=== PATIENT | male | born 1945 | race Caucasian/White ===

== ENCOUNTER 2019-07-05 02:54 | Inpatient (IN) | payer OTHER ==
[2019-07-05] MEDS ORDERED: ONDANSETRON 4 MG/2 ML VIAL ONE ×2 (03:30→10:29)
[2019-07-05] MEDS ORDERED: MORPHINE 4 MG/ML SYR ONE ×2 (03:30→04:53)
[2019-07-05 03:49] LABS: Basophils % 0.8 % (0-1.3); Hematocrit 32.9 % (39.6-49.0); Lymphocytes % 10.6 % (15.3-44.8); RBC Red Blood Cell Count 4.89 M/uL (4.33-5.43)
[2019-07-05 04:05] LABS: Albumin 3.5 g/dL (3.4-5.0); Bilirubin Direct 0.1 mg/dL (0-0.2); Bilirubin Total 0.6 mg/dL (0.2-1.0); Potassium 3.8 mmol/L (3.5-5.1); Protein, Total 6.3 g/dL (6.4-8.2)
[2019-07-05 04:21] LABS: Blood Morphology Comment NOTED (NOT SEEN); Hypochromasia 1+; Platelet Estimate ADEQ; Urine White Blood Cell Casts OK
[2019-07-05 05:13] LABS: Urine Bacteria <20 /HPF (NONE SEEN); Urine Culture Reflex Order NOT NEEDED; Urine Mucus LIGHT /HPF (NONE SEEN); Urine RBC NONE SEEN /HPF (NONE SEEN)
--- NOTE | 2019-07-05 06:34 | EDPHYS ---
Physician Documentation [facility] Name: Tk Leyva Age: 74 yrs Sex: Male : 1945 Arrival Date: 07/05/2019 Time: 03:00 Bed 5 Private MD: ED Physician Michael Calderon HPI: 07/05 03:27 This 74 yrs old Male presents to ER via Ambulatory with complaints of tw4 Abdominal Pain. 03:27 The patient presents with abdominal pain in the epigastric area. Onset: The tw4 symptoms/episode began/occurred today. The symptoms do not radiate. Associated signs and symptoms: none. The symptoms are described as sharp. Modifying factors: The symptoms are alleviated by nothing, the symptoms are aggravated by nothing. Severity of pain: At its worst the pain was moderate in the emergency department the pain has improved. The patient has not experienced similar symptoms in the past. Historical: - Allergies: 03:13 NKDA; ea - PMHx: 03:13 Parkinsons; Hypothyroidism; ea - PSHx: 03:13 Ear Surgery; Tonsillectomy; ea - Immunization history:: Adult Immunizations up to date. - Social history:: Smoking status: Patient/guardian denies using tobacco. - Ebola Screening: : No symptoms or risks identified at this time. ROS: 03:27 Constitutional: Negative for fever, chills, and weight loss, Eyes: Negative for injury, tw4 pain, redness, and discharge, Cardiovascular: Negative for chest pain, palpitations, and edema, Respiratory: Negative for shortness of breath, cough, wheezing, and pleuritic chest pain, Back: Negative for injury and pain, MS/Extremity: Negative for injury and deformity, Skin: Negative for injury, rash, and discoloration, Neuro: Negative for headache, weakness, numbness, tingling, and seizure. 03:27 Abdomen/GI: Positive for abdominal pain, abdominal cramps, Negative for nausea and vomiting, nausea, vomiting, and diarrhea, nausea, vomiting, diarrhea, constipation. Exam: 03:43 Constitutional: This is a well developed, well nourished patient who is awake, alert, tw4 and in no acute distress. Head/Face: Normocephalic, atraumatic. Eyes: Pupils equal round and reactive to light, extra-ocular motions intact. Lids and lashes normal. Conjunctiva and sclera are non-icteric and not injected. Cornea within normal limits. Periorbital areas with no swelling, redness, or edema. Neck: Trachea midline, no thyromegaly or masses palpated, and no cervical lymphadenopathy. Supple, full range of motion without nuchal rigidity, or vertebral point tenderness. No Meningismus. Chest/axilla: Normal chest wall appearance and motion. Nontender with no deformity. No lesions are appreciated. Cardiovascular: Regular rate and rhythm with a normal S1 and S2. No gallops, murmurs, or rubs. Normal PMI, no JVD. No pulse deficits. Respiratory: Lungs have equal breath sounds bilaterally, clear to auscultation and percussion. No rales, rhonchi or wheezes noted. No increased work of breathing, no retractions or nasal flaring. Skin: Warm, dry with normal turgor. Normal color with no rashes, no lesions, and no evidence of cellulitis. MS/ Extremity: Pulses equal, no cyanosis. Neurovascular intact. Full, normal range of motion. Neuro: Awake and alert, GCS 15, oriented to person, place, time, and situation. Cranial nerves II-XII grossly intact. Motor strength 5/5 in all extremities. Sensory grossly intact. Cerebellar exam normal. Normal gait. 03:43 Abdomen/GI: Inspection: abdomen appears normal, Bowel sounds: diminished, Palpation: moderate abdominal tenderness, in the left upper quadrant. Vital Signs: 03:11 BP 164 / 89; Pulse 70; Resp 18; Temp 97.8; Pulse Ox 98% on R/A; Weight 75.75 kg; Height ea 5 ft. 10 in. (177.80 cm); Pain 6/10; 03:45 BP 132 / 79; Pulse 63; Resp 18; Pulse Ox 95% on R/A; ea 04:00 BP 130 / 79; Pulse 61; Resp 18; Pulse Ox 95% on R/A; ea 05:56 BP 130 / 73; Pulse 68; Resp 18; Pulse Ox 97% on R/A; ea 06:50 BP 126 / 72; Pulse 62; Resp 17; Temp 98.2; Pulse Ox 100% ; rr5 03:11 Body Mass Index 23.96 (75.75 kg, 177.80 cm) ea MDM: 03:19 Patient medically screened. tw4 06:37 Differential diagnosis: bowel obstruction, cholecystitis, Cholelithiasis, tw4 diverticulitis, Hepatitis, non-specific abd pain, pancreatitis, Peptic Ulcer Disease, Perf. Duodenal Ulcer, Pyelonephritis, Ureterolithiasis. Data reviewed: vital signs, nurses notes. Data interpreted: Pulse oximetry: Interpretation: normal. Counseling: I had a detailed discussion with the patient and/or guardian regarding: the historical points, exam findings, and any diagnostic results supporting the discharge/admit diagnosis. Physician consultation: Rosita Ferrera MD regarding admission, to the medical/surgical unit. and will see patient in inpatient room. 07/05 03:20 Order name: Basic Metabolic Panel; Complete Time: 05:48 tw4 07/05 05:48 Interpretation: Normal except: GLUC 133; BUN 21; GFR 74. tw4 07/05 03:20 Order name: CBC with Diff; Complete Time: 05:48 tw4 07/05 05:48 Interpretation: Normal except: MCV 67.3; MCH 21.6; HCT 32.9; HGB 10.5; RDW 16.2; RADHA% tw4 82.0; LYM% 10.6. 07/05 03:20 Order name: Creatinine for Radiology; Complete Time: 05:48 tw4 07/05 05:48 Interpretation: Within normal limits: CRE 1.00. tw4 07/05 03:20 Order name: Hepatic Function; Complete Time: 05:48 tw4 07/05 05:48 Interpretation: Normal except: AST 14; TP 6.3. tw4 07/05 03:20 Order name: Lipase; Complete Time: 05:48 tw4 07/05 05:48 Interpretation: LIP 82. tw4 07/05 03:20 Order name: Urine Microscopic Only tw4 07/05 04:21 Order name: CBC Smear Scan EDMS 07/05 06:45 Order name: CBC with Automated Diff EDMS 07/05 06:45 Order name: CBC with Automated Diff EDMS 07/05 06:45 Order name: Comprehensive Metabolic Panel EDMS 07/05 06:45 Order name: Comprehensive Metabolic Panel EDMS 07/05 06:45 Order name: Magnesium EDMS 07/05 06:45 Order name: Magnesium EDMS 07/05 06:45 Order name: Phosphorus EDMS 07/05 03:20 Order name: IV Saline Lock; Complete Time: 03:46 tw4 07/05 03:20 Order name: Labs collected and sent; Complete Time: 03:46 tw4 07/05 03:20 Order name: Urine Dipstick-Ancillary (obtain specimen); Complete Time: 05:00 tw4 07/05 03:20 Order name: CT Abd/Pelvis - IV Contrast Only tw4 07/05 06:45 Order name: CONS Physician Consult EDMS 07/05 06:45 Order name: NPO EDMS 07/05 06:45 Order name: Phosphorus EDMS 07/05 06:45 Order name: Protime (+INR) EDMS 07/05 06:45 Order name: Protime (+INR) EDMS 07/05 06:45 Order name: PTT, Activated Partial Thromb EDMS 07/05 06:45 Order name: PTT, Activated Partial Thromb EDMS Administered Medications: 03:42 Drug: Zofran 4 mg Route: IVP; Site: right antecubital; ea 04:46 Follow up: Response: No adverse reaction; Nausea is decreased ea 03:46 Drug: morphine 4 mg Route: IVP; Site: right antecubital; ea 04:46 Follow up: Response: No adverse reaction; Pain is decreased ea 04:59 Drug: morphine 4 mg Route: IVP; Site: right antecubital; ea 05:32 Follow up: Response: No adverse reaction; Pain is decreased ea Disposition: 07/05/19 06:33 Hospitalization ordered by Rosita Ferrera for Inpatient Admission. Preliminary diagnosis is acalculus cholecystitis. - Bed requested for Telemetry/MedSurg (Inpatient). - Status is Inpatient Admission. sv - Condition is Stable. - Problem is new. - Symptoms are unchanged. UTI on Admission? No Signatures: Dispatcher [employer] EDDC Cici Simms Stephanie, RN RN sv Antunez, Elena, RN RN ea Wadley, Terrence, MD MD tw4 Corrections: (The following items were deleted from the chart) 03:43 03:27 Constitutional: This is a well developed, well nourished patient who is awake, tw4 alert, and in no acute distress. Head/Face: Normocephalic, atraumatic. Chest/axilla: Normal chest wall appearance and motion. Nontender with no deformity. No lesions are appreciated. Cardiovascular: Regular rate and rhythm with a normal S1 and S2. No gallops, murmurs, or rubs. Normal PMI, no JVD. No pulse deficits. Respiratory: Lungs have equal breath sounds bilaterally, clear to auscultation and percussion. No rales, rhonchi or wheezes noted. No increased work of breathing, no retractions or nasal flaring. Abdomen/GI: Soft, non-tender, with normal bowel sounds. No distension or tympany. No guarding or rebound. No evidence of tenderness throughout. Back: No spinal tenderness. No costovertebral tenderness. Full range of motion. MS/ Extremity: Pulses equal, no cyanosis. Neurovascular intact. Full, normal range of motion. Neuro: Awake and alert, GCS 15, oriented to person, place, time, and situation. Cranial nerves II-XII grossly intact. Motor strength 5/5 in all extremities. Sensory grossly intact. Cerebellar exam normal. Normal gait. tw4 07:14 06:33 Hospitalization Ordered by Rosita Ferrera MD for Inpatient Admission. Preliminary bd diagnosis is acalculus cholecystitis. Bed requested for Telemetry/MedSurg (Inpatient). Status is Inpatient Admission. Condition is Stable. Problem is new. Symptoms are unchanged. UTI on Admission? No. tw4 07:51 07:14 07/05/2019 06:33 Hospitalization Ordered by Rosita Ferrera MD for Inpatient sv Admission. Preliminary diagnosis is acalculus cholecystitis. Bed requested for Telemetry/MedSurg (Inpatient). Status is Inpatient Admission. Condition is Stable. Problem is new. Symptoms are unchanged. UTI on Admission? No. bd
--- NOTE | 2019-07-05 06:34 | ER ---
Nurse's Notes [facility] Name: Tk Leyva Age: 74 yrs Sex: Male : 1945 Arrival Date: 07/05/2019 Time: 03:00 Bed 5 Private MD: Diagnosis: acalculus cholecystitis Presentation: 07/05 03:09 Presenting complaint: Patient states: Patient reports he started having abdominal pain ea since 0, reports the pain is constant. Transition of care: patient was not received from another setting of care. Onset of symptoms was July 05, 2019. Risk Assessment: Do you want to hurt yourself or someone else? Patient reports no desire to harm self or others. Initial Sepsis Screen: Does the patient meet any 2 criteria? No. Patient's initial sepsis screen is negative. Does the patient have a suspected source of infection? No. Patient's initial sepsis screen is negative. Care prior to arrival: None. 03:09 Method Of Arrival: Ambulatory ea 03:09 Acuity: ANNIE 3 ea Triage Assessment: 03:11 General: Appears in no apparent distress. Behavior is appropriate for age. Pain: ea Complains of pain in right upper quadrant and left upper quadrant. Neuro: Level of Consciousness is awake, alert, obeys commands, Oriented to person, place, time, situation. Cardiovascular: Patient's skin is warm and dry. Respiratory: Airway is patent Respiratory effort is even, unlabored, Respiratory pattern is regular, symmetrical. GI: Abdomen is non-distended. Derm: Skin is dry, Skin is pale, Skin temperature is warm. Historical: - Allergies: 03:13 NKDA; ea - PMHx: 03:13 Parkinsons; Hypothyroidism; ea - PSHx: 03:13 Ear Surgery; Tonsillectomy; ea - Immunization history:: Adult Immunizations up to date. - Social history:: Smoking status: Patient/guardian denies using tobacco. - Ebola Screening: : No symptoms or risks identified at this time. Screenin:10 Abuse screen: Denies threats or abuse. Nutritional screening: No deficits noted. ea Tuberculosis screening: No symptoms or risk factors identified. Fall Risk None identified. Assessment: 03:20 Reassessment: see triage assesment. ea 04:00 Reassessment: Patient and/or family updated on plan of care and expected duration. Pain ea level reassessed. Patient is alert, oriented x 3, equal unlabored respirations, skin warm/dry/pink. 05:52 Reassessment: Patient and/or family updated on plan of care and expected duration. Pain ea level reassessed. Patient is alert, oriented x 3, equal unlabored respirations, skin warm/dry/pink. 06:54 Reassessment: Patient appears in no apparent distress at this time. Patient and/or rr5 family updated on plan of care and expected duration. Pain level reassessed. Patient is alert, oriented x 3, equal unlabored respirations, skin warm/dry/pink. ED provider explained to patient for the plan of care. patient agreed for admission. Patient states feeling better. Patient states symptoms have improved. 07:16 Reassessment: Patient appears in no apparent distress at this time. Patient and/or sg family updated on plan of care and expected duration. Pain level reassessed. pt updated on bed assignment, awaiting a call back from receiving nurse, pt stated understanding. Vital Signs: 03:11 BP 164 / 89; Pulse 70; Resp 18; Temp 97.8; Pulse Ox 98% on R/A; Weight 75.75 kg; Height ea 5 ft. 10 in. (177.80 cm); Pain 6/10; 03:45 BP 132 / 79; Pulse 63; Resp 18; Pulse Ox 95% on R/A; ea 04:00 BP 130 / 79; Pulse 61; Resp 18; Pulse Ox 95% on R/A; ea 05:56 BP 130 / 73; Pulse 68; Resp 18; Pulse Ox 97% on R/A; ea 06:50 BP 126 / 72; Pulse 62; Resp 17; Temp 98.2; Pulse Ox 100% ; rr5 03:11 Body Mass Index 23.96 (75.75 kg, 177.80 cm) ea ED Course: 03:00 Patient arrived in ED. jg7 03:10 Triage completed. ea 03:10 Patient has correct armband on for positive identification. Placed in gown. Bed in low ea position. Call light in reach. Side rails up X 1. Adult w/ patient. 03:11 Arm band placed on right wrist. Patient placed in an exam room, on a stretcher, on ea pulse oximetry. 03:19 Michael Calderon MD is Attending Physician. tw4 03:20 Yesica Ruano, RN is Primary Nurse. ea 03:42 Inserted saline lock: 20 gauge in right antecubital area, using aseptic technique. ea Blood collected. 04:44 CT Abd/Pelvis - IV Contrast Only In Process Unspecified. EDLA 06:32 Rosita Ferrera MD is Hospitalizing Provider. tw4 07:43 No provider procedures requiring assistance completed. Patient admitted, IV remains in sv place. intact. Administered Medications: 03:42 Drug: Zofran 4 mg Route: IVP; Site: right antecubital; ea 04:46 Follow up: Response: No adverse reaction; Nausea is decreased ea 03:46 Drug: morphine 4 mg Route: IVP; Site: right antecubital; ea 04:46 Follow up: Response: No adverse reaction; Pain is decreased ea 04:59 Drug: morphine 4 mg Route: IVP; Site: right antecubital; ea 05:32 Follow up: Response: No adverse reaction; Pain is decreased ea Outcome: 06:33 Decision to Hospitalize by Provider. tw4 07:43 Admitted to Med/surg accompanied by tech, via wheelchair, room 207, with chart, Report sv called to Isai JORDAN 07:43 Condition: stable 07:43 Instructed on the need for admit. 07:51 Patient left the ED. sv Signatures: Dispatcher [employer] EDLA Edith Cuadra, RN Xu Wallace, RN Yesica Peter, RN Michael Fernandez ea, MD MD tw4 Ector Lee, RN RN 5 Anu KatAvinash
[2019-07-05] MEDS ORDERED: ACETAMINOPHEN 500 MG TAB PO PRN (06:40)
[2019-07-05] MEDS ORDERED: HYDROMORPHONE HCL 1 MG/ML INJ IV PRN ×2 (06:40→11:50)
[2019-07-05] MEDS ORDERED: Levofloxacin500mg IV 500 MG/100 ML BAG IV ONE (06:40)
[2019-07-05] MEDS ORDERED: ONDANSETRON 4 MG/2 ML VIAL IV PRN (06:40)
[2019-07-05] MEDS ORDERED: BISACODYL 10 MG RECTAL SUPP PR ONE (07:04)
[2019-07-05] MEDS ORDERED: HYDROMORPHONE HCL 0.5 MG/0.5 ML INJ IV PRN (08:56)
[2019-07-05] MEDS: NA CHLORIDE 0.9% 1,000 ML IV SCH ×2 (09:09→20:20)
--- NOTE | 2019-07-05 09:17 | RAD REPORT ---
EXAM DESCRIPTION: US - Abdomen Exam Limited - 07/05/2019 8:59 am CLINICAL HISTORY: abdominal pain COMPARISON: Abdomen Pelvis W Contrast dated 07/05/2019 FINDINGS: Gallbladder is distended but not grossly dilated. Wall is slightly thickened. No gallbladd er wall mass is identified. Minimal amount of sludge is present within the lumen. Punctate gallstones are present 2-3 mm in maximum dimension. Trace amount of pericholecystic fluid seen. No intrahepatic or extrahepatic biliary tree dilatation. No duct stone identifiable. IMPRESSION: Abnormal gallbladder as detailed. Findings would be consistent with a mixed acute and ch ronic cholecystitis. Correlation is needed with clinical presentation. No biliary tree dilatation or duct stone identifiable.
[2019-07-05 09:21] VITALS: BMI 23.3
[2019-07-05] MEDS ORDERED: Ringers Lactate 1,000 ML IV ONE (10:00)
[2019-07-05] MEDS ORDERED: BUPIVACAINE 0.5% PF 10 ML VIAL ONE (10:21)
[2019-07-05] MEDS ORDERED: PROPOFOL 200 MG/20 ML VIAL IV ONE (10:24)
[2019-07-05] MEDS ORDERED: MIDAZOLAM HCL 2 MG/2 ML INJ ONE (10:24)
[2019-07-05] MEDS ORDERED: GLYCOPYRROLATE 0.2 MG/ML SYR ONE ×2 (10:24→10:25)
[2019-07-05] MEDS ORDERED: LIDOCAINE 2% MPF 5 ML VIAL ONE (10:25)
[2019-07-05] MEDS ORDERED: FENTANYL CITR 100 MCG/2 ML ONE (10:30)
--- NOTE | 2019-07-05 11:38 | P.OP ---
Preoperative diagnosis: Acute Cholecystitis and Cholelithiasis Postoperative diagnosis: same Primary procedure: Lap Ally Secondary procedure: Anesthesia: General Estimated blood loss: min Specimen: GB Findings: as above Complications: None Transferred to: Recovery Room Condition: Good
[2019-07-05] MEDS: METRONIDAZOLE 500mg IVPB 500 MG/100 ML BAG IV SCH ×3 (12:45→23:56)
--- NOTE | 2019-07-05 13:33 | PREOPCON ---
Date of Consultation: 07/05/2019 Reason For Consultation: Abdominal pain. History Of Present Illness: Patient is a 74-year-old gentleman comes in with acute onset of epigastr ic right upper quadrant abdominal pain. Denies any nausea or vomiting. No diarrhea. He does have c onstipation. No bloody stools. No dysuria or hematuria at this time. No bloating, belching, or hea rt burn. Pain is still present. No sore throat, runny nose, cough, headaches, or dizziness. No jose st pain. No fever or chills. Review of Systems: Otherwise unremarkable. Past Medical History: Significant for Parkinson disease, hypothyroidism and benign prostatic hypertr ophy. Past Surgical History: Ear surgery, tonsillectomy and adenoidectomy. Allergies: NO ALLERGIES. Social History: He does not smoke or drink alcohol. Family History: Noncontributory. Physical Examination: Vital Signs: Stable. He is currently afebrile. General: He is awake, alert, and oriented x3. Head and Neck: Cranial nerves 2 through 12 are grossly within normal limits. No neck masses. No JV D. Throat clear. Neck supple. There is no evidence of icterus. Chest: Clear. Heart: S1, S2. Abdomen: Soft, nondistended. Positive bowel sounds. Positive right upper quadrant tenderness with rebound. No rigidity or guarding. There is some tenderness in the left side of the abdomen as well. Extremities: Adequately perfused. Nontender. Neuro: Nonfocal. Laboratory Data: Ultrasound shows gallstones with distended gallbladder and slightly thickened gallb ladder wall. CT scan reviewed as well. Laboratory Data: Reviewed. White count is 9.7 with a left shift. Chemistry reviewed. His LFTs, an d lipase are within normal limits. Assessment: Acute cholecystitis and cholelithiasis. Plan: Admit, n.p.o., IV fluid, IV antibiotic, to the OR for lap herminia, possible open. Patient under stands the risks, benefits, and alternatives and agrees to procedure. /MODL Voice ID: [id number] Report ID: [id number]
--- NOTE | 2019-07-05 14:22 | OP ---
Date of Procedure: 07/05/2019 Surgeon: Reyes Stinson MD Preoperative Diagnoses: Acute cholecystitis and cholelithiasis. Postoperative Diagnoses: Acute cholecystitis and cholelithiasis. Procedures: 1.Laparoscopic cholecystectomy. 2.Repair of umbilical hernia. Estimated Blood Loss: Minimal. Specimens: Gallbladder, hernia sac and contents. Findings: As above. Anesthesia: General. Complications: None. Disposition: The patient tolerated the procedure in stable condition, taken to Recovery in good gene ral condition. Procedure In Detail: Patient was brought to the OR and placed in supine position. General anesthesi a was begun. The patient was prepped and draped in usual sterile fashion. Marcaine 0.5% was infiltr ated locally. A 15 blade was used to make a 1 cm supraumbilical midline incision. The hernia sac an d contents were identified down through the fascia, excised and sent to Pathology as specimen. Appro ximately a 1 cm defect remained and a #1 Vicryl stay suture was placed. Peritoneal cavity was entere d with sharp and blunt dissection. A 12 mm trocar was placed into the peritoneal cavity under direct vision. Pneumoperitoneum was established. Three 5 mm trocars were placed, 1 in the epigastrium jus t to the right of midline and 2 in the right subcostal region. Laparoscopy revealed distended gallbl adder which was aspirated of clear bile consistent with hydrops and acute cholecystitis. Fundus retr acted superiorly. Infundibulum was identified and retracted inferolaterally. Cystic duct and cystic artery were clearly identified with blunt dissection. Clips placed. Both structures were divided a nd cautery used to remove the gallbladder from the liver bed. Bleeding on the liver bed was controll ed with cautery. The gallbladder was retrieved through the umbilicus via an EndoCatch bag. Right up per quadrant was irrigated. Effluent was clear. No evidence of bleeding or bile leakage appreciated . Subsequently, all trocars were removed under direct vision. Stay sutures were tied to each other to reapproximate the fascial defect. Subcutaneous wounds were irrigated. Bleeding controlled with c autery. 3-0 chromic used for subcutaneous tissue and elton were used to close the skin. Sterile d ressing was applied. Patient was awakened and taken to Recovery in good general condition. PETER/MODL Voice ID: [id number] Report ID: [id number]
[2019-07-05] MEDS ORDERED: ENOXAPARIN 30 MG/0.3 ML SQ SCH (17:00)
[2019-07-05] MEDS: HYDROCODONE/APAP 7.5/325 MG TAB PO PRN (21:05)
[2019-07-06] MEDS: METRONIDAZOLE 500mg IVPB 500 MG/100 ML BAG IV SCH (05:00)
[2019-07-06] MEDS: HYDROCODONE/APAP 7.5/325 MG TAB PO PRN ×2 (05:00→10:24)
[2019-07-06 06:01] LABS: Absolute Lymphocytes (CBC) 0.8 K/uL (0.7-4.9); Basophils % 0.5 % (0-1.3); Hematocrit 33.2 % (39.6-49.0); Lymphocytes % 6.9 % (15.3-44.8); MPV 8.5 fL (7.6-11.3); RBC Red Blood Cell Count 4.99 M/uL (4.33-5.43)
[2019-07-06 06:19] LABS: Albumin 3.4 g/dL (3.4-5.0); Bilirubin Total 1.6 mg/dL (0.2-1.0); Magnesium 2.1 mg/dL (1.8-2.4); Potassium 3.8 mmol/L (3.5-5.1); Protein, Total 6.4 g/dL (6.4-8.2)
[2019-07-06 06:21] LABS: Protime INR 1.09
--- NOTE | 2019-07-06 07:04 | HP ---
Date of Admission: 07/05/2019 Chief Complaint: Abdominal pain. History Of Present Illness: This is a 74-year-old male patient with Parkinson disease, started to mendoza ve abdominal pain as of yesterday. Patient reported that his pain has been more or less continuous u ntil he came into emergency room and got some pain medication and then pain got better. Has some ass ociated nausea. No diarrhea. No fever, chills. No bleeding. No fall or injury to the abdominal ar ea. After he was evaluated in the ER, he was admitted to the hospital. When I saw him this morning soon after here out in his room on the medical floor. Allergies: NO KNOWN ALLERGIES. Medications: List reviewed. Review of Systems: GI: As mentioned above. All other systems reviewed and negative. Past Medical History: Significant for Parkinson disease, hypothyroidism, hyperlipidemia, diverticulo sis, renal cyst, benign prostatic hypertrophy, anemia. Past Surgical History: Vasectomy. Family History: Significant for father had lung cancer and diabetes. Mother, thyroid disorder. Bro ther with diabetes. Social History: Negative for smoking. Use of alcohol rarely. Physical Examination: Vital Signs: This morning, temperature 98, pulse 70, respiratory rate 20, blood pressure 142/74, oxy gen saturation 97%. General: Awake, alert, oriented, not in distress. HEENT: Head atraumatic, normocephalic. Conjunctivae nonerythematous. Sclerae white. Mouth, no thr ush or edema noted. Ears/Nose, no mass, lesion, discharge noted. Neck: Supple. No JVD, lymph nodes, bruit, thyromegaly noted. Lungs: Bilateral good equal air entry. Clear to auscultation. No rhonchi. No rales. Heart: Normal heart sounds, no murmur or gallop. Abdomen: Soft. Bowel sounds normal. No guarding, rigidity, distention. No hepatosplenomegaly. No bruit. Patient does have some tenderness in right upper quadrant. No rebound tenderness. Extremities: No leg edema. No calf tenderness. Skin: No rash, ulcer, cellulitis. Lymphatics: No lymph node enlargement in neck, supraclavicular, infraclavicular region. Neuro: No focal neurological deficit. Chest: Unremarkable. External Genitalia: Deferred. Rectal: Deferred. Laboratory Data: White count 9.7, hemoglobin 10.5, platelets 290. Sodium 139, potassium 3.8, chlori de 106, bicarb 29, BUN 21, creatinine 0.99, glucose 133. Liver function tests unremarkable. Lipase 82. Urinalysis negative. CAT scan of abdomen shows evidence of inflamed gallbladder, enlarged prost ate. After I saw patient's right upper quadrant abdominal ultrasound was done, which showed gallblad jud wall thickening with distended gallbladder and presence of gallstones. Impression: 1.Gallstone with acute cholecystitis. 2.Parkinson disease. 3.Anemia, chronic, unspecified. 4.Hypothyroidism. 5.Diverticulosis. 6.Benign prostatic hypertrophy. 7.Hyperlipidemia. Plan: Admit patient to the hospital for further evaluation and management of this problem. Patient is appropriate for inpatient and is expected to spend 2 midnights in the hospital. After I saw him, he was kept n.p.o. General surgeon, Dr. Stinson was consulted. Details were discussed with him and hi s plan is to take patient to surgery today. Patient is at acceptable risk for plans gallbladder surg roseanna. We will keep him n.p.o., give IV fluid, IV antibiotics per order. Pain medication will be give n per order. DVT prophylaxis will be given per order. Details plan of treatment discussed with patient and his . I will see him lydia lees for followup. DAVID/MODL Voice ID: [id number]
[2019-07-06] MEDS ORDERED: PIPER/TAZO/NS 3.375gm 3.375 GM/100 ML BAG IVPB SCH (07:15)
[2019-07-06] MEDS: PIPER/TAZO/NS 3.375gm 3.375 GM/100 ML BAG IVPB SCH ×2 (08:24→17:23)
[2019-07-06] MEDS: FINASTERIDE 5 MG TAB PO SCH (08:25)
[2019-07-06] MEDS: CARBIDOPA/LEVODOPA 25/100 TAB PO SCH ×2 (08:25→21:35)
[2019-07-06] MEDS: NA CHLORIDE 0.9% 1,000 ML IV SCH ×2 (08:30→23:00)
[2019-07-06] MEDS ORDERED: POTASSIUM CL SA 10 MEQ TAB PO ONE (09:00)
[2019-07-06] MEDS: ENTACAPONE PO SCH ×3 (09:00→21:00)
[2019-07-06] MEDS: CARBIDOPA PO SCH ×3 (09:00→21:00)
[2019-07-06] MEDS: [UNRECOGNIZED DRUG - OTHER] PO SCH ×3 (09:00→21:00)
[2019-07-06] MEDS: LEVODOPA PO SCH ×3 (09:00→21:00)
--- NOTE | 2019-07-06 11:01 | RAD REPORT ---
EXAM DESCRIPTION: CT - Abdomen Pelvis W Contrast - 07/05/2019 5:01 am CLINICAL HISTORY: ABD PAIN COMPARISON: None. TECHNIQUE: Axial CT imaging of the abdomen and pelvis performed with intravenous contrast. Reformatt ed coronal and sagittal images reviewed. A dose reduction technique was utilized with automated exposure control according to patient size. FINDINGS: Mild bilateral lower lobe subpleural atelectasis. Heart is upper normal in size. The liver is normal in size and contour. No mass or biliary dilatation. Gallbladder is mildly thicken ed diffusely. No visualized stones. No biliary dilatation. Normal spleen. Fatty atrophied pancreas. Normal adrenal. Normal right kidney. Anterior left renal 3.4 cm cyst. Aorta and inferior vena cava are normal in caliber. Mesenteric vessels appear normal. No ad enopathy. There is a small hiatal hernia. Small bowel loops are unremarkable. Appendix is normal within the rig ht hemipelvis. Large amount of fecal loading noted throughout the entire colon to the rectum. No mese nteric adenopathy. There is no ascites or free air. Tiny fat-containing umbilical hernia. Normal bladder. Prostate is 5.1 x 4.3 x 4.2 cm. No pelvic free fluid. No adenopathy. Multilevel mild lumbar diffuse disc bulges. Intact bony pelvis. Normal hips. IMPRESSION: 1. Mild gallbladder wall thickening may represent acalculus cholecystitis. No evidence o f gallstones. Correlate with right upper quadrant exam. 2. Constipation. 3. Small hiatal hernia. 4. Left renal cysts. 5. Prostatomegaly. Electronically signed by: Raina Jj DO 07/05/2019 4:54 AM STEWARD/STEWARDESS BATH Due to temporary technical issues with the PACS/Fluency reporting system, reports are being signed by the in house radiologist as a courtesy to ensure prompt reporting. The interpreting radiologist is f ully responsible for the content of the report.
[2019-07-06] MEDS ORDERED: LIDOCAINE 1% W/EPI 1:100,000 MDV 20 ML VIAL ONE (11:10)
[2019-07-06] MEDS: ROPINIROLE HCL 1 MG TAB PO SCH ×2 (12:39→21:35)
[2019-07-06 14:20] VITALS: O2SAT 94
--- NOTE | 2019-07-06 15:02 | PN ---
Subjective: Patient is awake, alert, complaining of abdominal distention, urinary retention, has not voided. Had a bladder scan done, which showed over 730 mL of urine. Upper abdominal pain is minima l. He is able to tolerate diet without any problems. Objective: Vital Signs: Stable. He is currently afebrile. General: He is awake, alert. Abdomen: Distended in the lower part, consistent with a distended bladder. Dressing is clean, dry, and intact. Otherwise, the upper abdomen is soft. Assessment: Status post laparoscopic cholecystectomy, repair of umbilical hernia with urinary retent ion. Recommendations: I will talk with Dr. Méndez. Patient will get straight cath and start on his Flomax today and when he does well, clear from surgical standpoint for discharge. Follow up with me in 1 we ek. Discharge Instructions: Given. PETER/CARMELLA Voice ID: [id number] Report ID: [id number]
[2019-07-06] MEDS ORDERED: ENOXAPARIN 40 MG/0.4 ML SQ SCH (17:00)
[2019-07-06] MEDS ORDERED: TAMSULOSIN 0.4 MG SR CAP PO SCH (21:00)
--- NOTE | 2019-07-06 23:24 | PN ---
Date of Progress Note: 07/06/2019 Subjective: Patient was seen this morning for followup. He was sitting on bedside commode, trying t o urinate but had trouble voiding. Subsequently, after I saw him, he still continued to have trouble voiding and his bladder scan showed 750 cc of urine. A straight cath was done with removal of appro ximately 1000 cc of urine and a few hours later, patient had urinary retention again. He was not abl e to void after the straight cath was done, so we decided to put a Byrd catheter. Objective: Vital Signs: Reviewed. HEENT: Unremarkable. Lungs: Clear to auscultation. Heart: Sounds normal. Abdomen: Soft. Bowel sounds normal. No guarding, rigidity, tenderness, distention. Extremities: No leg edema. Laboratory Data: White count 12, hemoglobin 10.9, platelets 260. Sodium 140, potassium 3.8, chlorid e 107, bicarb 30, BUN 14, creatinine 1, glucose of 103. Liver function tests unremarkable, except to bhupendra bilirubin 1.6, SGOT 109, SGPT 168. Impression: 1.Gallstone with acute cholecystitis, status post cholecystectomy. 2.Benign prostatic hypertrophy with urinary retention. 3.Anemia, chronic. Plan: We will continue current medications instead of his current antibiotic, Levaquin and Flagyl. We will start him on IV Zosyn. Considering low-grade fever that he had this morning and elevated whi te count. For urinary retention, we will go ahead and put the Byrd catheter. His Flomax that he ta kes at home was this morning. We will evaluate him tomorrow and possible discharge to go home tomorrow with or without Byrd depending on his urinary retention problem. DAVID/MODL Voice ID: [id number] Report ID: [id number]
[2019-07-07] MEDS: PIPER/TAZO/NS 3.375gm 3.375 GM/100 ML BAG IVPB SCH ×2 (01:00→08:45)
[2019-07-07] MEDS ORDERED: RASAGILINE MESYLATE 1 MG PO SCH (06:00)
[2019-07-07] MEDS ORDERED: LEVOTHYROXINE SOD 0.125 MG TAB PO SCH (06:00)
[2019-07-07 06:15] LABS: Absolute Lymphocytes (CBC) 1.2 K/uL (0.7-4.9); Lymphocytes % 12.1 % (15.3-44.8); MPV 8.8 fL (7.6-11.3); RBC Red Blood Cell Count 4.31 M/uL (4.33-5.43)
[2019-07-07 06:38] LABS: Potassium 3.5 mmol/L (3.5-5.1)
[2019-07-07 07:48] LABS: Albumin 2.9 g/dL (3.4-5.0); Bilirubin Direct 0.3 mg/dL (0-0.2); Bilirubin Total 1.2 mg/dL (0.2-1.0); Protein, Total 5.8 g/dL (6.4-8.2)
[2019-07-07 08:40] VITALS: BP 134/72; TEMP 98
[2019-07-07] MEDS: ROPINIROLE HCL 1 MG TAB PO SCH (08:44)
[2019-07-07] MEDS: FINASTERIDE 5 MG TAB PO SCH (08:44)
[2019-07-07] MEDS: CARBIDOPA/LEVODOPA 25/100 TAB PO SCH (08:45)
[2019-07-07] MEDS ORDERED: POTASSIUM CL SA 10 MEQ TAB PO ONE (09:00)
--- NOTE | 2019-07-07 11:00 | PN ---
Date of Progress Note: 07/07/2019 Subjective: Patient is awake, alert, no complaints. He did have urinary retention. Had to have a c atheter placed, he is going home with a catheter. He is tolerating his diet, ambulating, pain contro lled on p.o. pain medication. Objective: Vital Signs: Stable, afebrile. Abdomen: Benign. LFTs have improved. Assessment: Status post laparoscopic cholecystectomy. Recommendation: Discharge instructions was given. Patient to follow up with me in 1 week. /MODL Voice ID: [id number] Report ID: [id number]
[2019-07-07] MEDS ORDERED: LEVODOPA PO SCH (13:00)
[2019-07-07] MEDS ORDERED: ENTACAPONE PO SCH (13:00)
[2019-07-07] MEDS ORDERED: CARBIDOPA PO SCH (13:00)
--- NOTE | 2019-07-08 04:51 | DS ---
Date of Discharge: 07/07/2019 Disposition: Discharged to go home. Physical Examination: HEENT: Unremarkable. Lungs: Clear to auscultation. Heart: Heart sounds normal. Abdomen: Soft, bowel sounds normal. No guarding, rigidity, tenderness, or distention. Extremities: No leg edema. Laboratory Data: Today, white count 9.8, hemoglobin 9.5, platelets 244. Yesterday, white count 12, hemoglobin 10.9, platelets 260. Upon admission, white count 9.7, hemoglobin 10.5, platelets 290. Ch emistry; today sodium 141, potassium 3.5, chloride 106, bicarb 29, BUN 17, creatinine 1.02, glucose 8 9. Upon admission, lipase was 82. Discharge Medications And Instructions: 1.Continue prior home medications. 2.Take Augmentin 875 mg 2 times a day for 1 week. 3.Follow up at my office on 07/13/2019, at 9:00 a.m. 4.Follow up with Dr. Stinson and Dr. Bojorquez. 5.Nurse to teach patient's how to take care of Byrd catheter and to change Byrd catheter to l eg bag prior to discharge. Hospital Course: A 74-year-old male patient admitted to the hospital with abdominal pain. See darlene Jain for more information. The patient was evaluated in the emergency room, he was admitted t o the hospital, had a routine blood work, CAT scan of abdomen and after I saw him, I ordered abdomina l ultrasound and it showed presence of gallstones with evidence of cholecystitis. Dr. Stinson from [facility] was consulted. Patient had laparoscopic cholecystectomy done by Dr. Stinson. Postoperati vely, yesterday he started to have urinary retention. He was not able to void and he had about 750 m L of urine according to bladder scan and so straight cath was done and we were able to drain about 10 00 mL of urine and few hours later, the patient was still not able to void and at that time we actual ly ended up putting a Byrd catheter because of urinary retention problem. He takes finasteride and tamsulosin, those medications were continued. I expect that he may need placement of Byrd catheter for few days and we should be able to remove it on outpatient basis. He has seen Dr. Bojorquez in the [facility] and I have advised him to follow up with Dr. Bojorquez sometime next week so he can evaluate at his of [facility] and make a decision to remove Byrd catheter at that time. The patient's will schedule [facility] t appointment for him. His white count had gone up yesterday to 12,000, so IV antibiotics were riley ed, Levaquin and Flagyl were stopped and he was started on Zosyn. This morning white count is back t o normal. He is tolerating diet very well. No other complaints reported. From general surgeon poin t of view, the patient is stable for discharge. Medically, he is stable for discharge as well. Final Diagnoses: 1.Gallstone with acute cholecystitis. 2.Parkinson disease. 3.Anemia, chronic unspecified. 4.Benign prostatic hypertrophy with urinary retention. 5.Hypothyroidism. 6.Diverticulosis. 7.Hyperlipidemia. DAVID/MODL Voice ID: [id number] Report ID: [id number]
== END 2019-07-07 10:45 | disposition home or self-care (01) | DRG 419 ==
LOC: ER 02:54 → ERHOLD 06:55 → 2ND 07:45
PROVIDERS: ADMIT Internal Medicine; ATTEND Internal Medicine
PROC: 0WQF0ZZ Repair Abdominal Wall, Open Approach (ICD-10-PCS; 2019-07-05)
PROC: 0FT44ZZ Resection of Gallbladder, Percutaneous Endoscopic Approach (ICD-10-PCS; principal; 2019-07-05 10:30)
DX: K80.00 Calculus of gallbladder with acute cholecystitis without obstruction (principal); K42.9 Umbilical hernia without obstruction or gangrene; G20 Parkinson's disease; D64.9 Anemia, unspecified; E03.9 Hypothyroidism, unspecified; N40.0 Benign prostatic hyperplasia without lower urinary tract symptoms; E78.5 Hyperlipidemia, unspecified; K57.90 Diverticulosis of intestine, part unspecified, without perforation or abscess without bleeding; N28.1 Cyst of kidney, acquired; R33.9 Retention of urine, unspecified
CPT/HCPCS: 36415; 74177; 76705; 80048; 80053; 80076; 81015; 83690; 83735; 84100; 85025; 85610; 85730; 88302; 88304; 96374; 96375; 97116; 97161; 97530; 99285; J1650; J2250; J2405; J2543; J2704; J3010; J7030; J7120; Q9967

== ENCOUNTER 2020-01-18 15:42 | Emergency (ER) | payer OTHER ==
[2020-01-18] MEDS ORDERED: BUPIVACAINE 0.5% PF 10 ML VIAL ONE (16:13)
[2020-01-18] MEDS ORDERED: LIDOCAINE 1% MPF 5 ML VIAL ONE (16:13)
[2020-01-18] MEDS ORDERED: TETANUS & DIPHTHERIA TOX,ADULT 0.5 ML VIAL ONE (16:13)
--- NOTE | 2020-01-18 17:07 | RAD REPORT ---
EXAM DESCRIPTION: RAD - Hand Left 3 View - 01/18/2020 4:32 pm CLINICAL HISTORY: laceration Trauma, pain COMPARISON: No comparisons FINDINGS: No fracture, dislocation or radiopaque foreign body. Moderate multi-joint arthritic change s.
--- NOTE | 2020-01-18 17:31 | ER ---
Nurse's Notes [facility] Name: Tk Leyva Age: 74 yrs Sex: Male : 1945 Arrival Date: 01/18/2020 Time: 15:45 Bed 8 Private MD: Kael Méndez C Diagnosis: Laceration without foreign body of left hand Presentation: 01/17 15:48 Chief complaint: Patient states: Trip and fell. Branch lacerated left hand. <3 cm ll1 laceration, bleeding controlled. Coronavirus screen: Proceed with normal triage. Patient denies a cough. Patient denies shortness of breath or difficulty breathing. Patient denies measured and/or subjective temperature greater than 100.4F prior to today's visit. Patient denies travel on a cruise ship or to a country the [facility] currently lists as an affected area. Patient denies contact with known and/or suspected case of COVID-19. Ebola Screen: Patient denies travel to an Ebola-affected area in the 21 days before illness onset. Initial Sepsis Screen: Does the patient meet any 2 criteria? No. Patient's initial sepsis screen is negative. Risk Assessment: Do you want to hurt yourself or someone else? Patient reports no desire to harm self or others. Onset of symptoms was January 18, 2020. 15:48 Method Of Arrival: Wheelchair ll1 15:48 Acuity: ANNIE 4 ll1 Historical: - Allergies: 15:50 NKDA; ll1 - PMHx: 15:50 Hypothyroidism; Parkinsons; ll1 - PSHx: 15:50 Ear Surgery; Tonsillectomy; ll1 - Immunization history:: Last tetanus immunization: unknown. - Social history:: Smoking status: Patient denies any tobacco usage or history of. Patient/guardian denies using alcohol, street drugs, tobacco products. Screenin:40 Abuse screen: Denies threats or abuse. Nutritional screening: No deficits noted. em Tuberculosis screening: No symptoms or risk factors identified. Fall Risk None identified. Assessment: 16:40 General: Appears in no apparent distress. comfortable, Behavior is calm, cooperative, em appropriate for age. Pain: Complains of pain in palm of left hand Pain currently is 2 out of 10 on a pain scale. Neuro: Level of Consciousness is awake, alert, obeys commands, Oriented to person, place, time, situation, Appropriate for age. Cardiovascular: Capillary refill < 3 seconds Patient's skin is warm and dry. Respiratory: Airway is patent Respiratory effort is even, unlabored. GI: Abdomen is flat. Derm: Skin is intact, is healthy with good turgor, Skin is pink, warm \\T\\ dry. Musculoskeletal: Capillary refill < 3 seconds, Range of motion: intact in all extremities. Injury Description: Puncture sustained to palm of left hand is superficial, was sustained "hours ago". Vital Signs: 15:48 BP 101 / 63; Pulse 74; Resp 17; Temp 97.1; Pulse Ox 99% ; Pain 2/10; ll1 ED Course: 15:45 Patient arrived in ED. as 15:45 Kael Méndez MD is Private Physician. as 15:49 Triage completed. ll1 15:50 Arm band placed on Patient placed in an exam room, on a stretcher. ll1 15:55 Ej Pedraza RN is Primary Nurse. em 15:55 Austin Scott NP is PHCP. pm1 15:55 Hrajeet Covarrubias MD is Attending Physician. pm1 16:33 Hand Left 3 View XRAY In Process Unspecified. EDMS 16:40 Patient has correct armband on for positive identification. Bed in low position. Call em light in reach. Side rails up X2. Adult w/ patient. Pulse ox on. NIBP on. 17:01 Assist provider with laceration repair on palm of left hand that was 2.5 cm. or less em using sutures. Set up tray. Performed by Austin Scott MATERIAL HANDLING EQUIPMENT STEVEDORE Dressed with Kerlix, Neosporin, Patient tolerated well. 17:52 Patient did not have IV access during this emergency room visit. em Administered Medications: 16:42 Drug: Tetanus-Diphtheria Toxoid Adult 0.5 ml {Museum Informatics Specialist: [employer]. Exp: em 09/17/2021. Lot #: [id number]. } Route: IM; Site: right deltoid; 17:48 Follow up: Response: No adverse reaction em 17:01 Drug: Bupivacaine (0.5 %) 10 ml {Note: administered by AUSTIN Avila.} Volume: 10 ml; em Route: Infiltration; Site: wound; 17:49 Follow up: Response: No adverse reaction; Pain is decreased em 17:01 Drug: Lidocaine (1 %) 5 ml {Note: administered by AUSTIN Avila .} Volume: 5 ml; Route: em Infiltration; 17:48 Follow up: Response: No adverse reaction; Pain is decreased em Outcome: 17:31 Discharge ordered by MD. pm1 17:50 Discharged to home via wheelchair, with family. em 17:50 Condition: good 17:50 Discharge instructions given to patient, Instructed on discharge instructions, follow up and referral plans. medication usage, Demonstrated understanding of instructions, follow-up care, medications, Prescriptions given X 1. 17:53 Patient left the ED. em Signatures: Dispatcher [employer] EDEj Aguilar RN RN Ele Hardy Patrick, NP MATERIAL HANDLING EQUIPMENT STEVEDORE pm1 Chato Monae RN RN ll1
--- NOTE | 2020-01-18 17:31 | EDPHYS ---
Physician Documentation [facility] Name: Tk Leyva Age: 74 yrs Sex: Male : 1945 Arrival Date: 01/18/2020 Time: 15:45 Bed 8 Private MD: Kael Méndez C ED Physician Harjeet Covarrubias HPI: 01/17 17:31 This 74 yrs old Male presents to ER via Wheelchair with complaints of pm1 Laceraton To Left Hand. 17:31 The patient or guardian reports a laceration, irregular. The complaints affect the Left pm1 first web space. Context: The problem was sustained at home, resulted from tripped and then fell on the ground and cut his left hand on tyler branch. Onset: The symptoms/episode began/occurred just prior to arrival, today. Modifying factors: The symptoms are alleviated by pressure to area, the symptoms are aggravated by nothing. Associated signs and symptoms: The patient has no apparent associated signs or symptoms, Pertinent negatives: cyanosis distally, decreased sensation distally, numbness distally, tingling distally. The patient has not experienced similar symptoms in the past. Historical: - Allergies: 15:50 NKDA; ll1 - PMHx: 15:50 Hypothyroidism; Parkinsons; ll1 - PSHx: 15:50 Ear Surgery; Tonsillectomy; ll1 - Immunization history:: Last tetanus immunization: unknown. - Social history:: Smoking status: Patient denies any tobacco usage or history of. Patient/guardian denies using alcohol, street drugs, tobacco products. ROS: 17:31 Constitutional: Negative for fever, chills, and weight loss, Neck: Negative for injury, pm1 pain, and swelling, Cardiovascular: Negative for chest pain, palpitations, and edema, Respiratory: Negative for shortness of breath, cough, wheezing, and pleuritic chest pain, Abdomen/GI: Negative for abdominal pain, nausea, vomiting, diarrhea, and constipation, Back: Negative for injury and pain. 17:31 Neuro: Negative for headache, weakness, numbness, tingling, and seizure. 17:31 MS/extremity: Positive for laceration, of the Left first web space, Negative for decreased range of motion, deformity. 17:31 Skin: Positive for laceration(s), of the Left first web space. Exam: 17:31 Constitutional: This is a well developed, well nourished patient who is awake, alert, pm1 and in no acute distress. Head/Face: Normocephalic, atraumatic. Neck: Trachea midline, no thyromegaly or masses palpated, and no cervical lymphadenopathy. Supple, full range of motion without nuchal rigidity, or vertebral point tenderness. No Meningismus. 17:31 Cardiovascular: Exam negative for acute changes, Rate: normal, Rhythm: regular, Pulses: no pulse deficits are appreciated. 17:31 Respiratory: Exam negative for acute changes, respiratory distress, shortness of breath. 17:31 Musculoskeletal/extremity: Extremities: grossly normal except: noted in the Left first web space: laceration, There is no evidence of ROM: full active range of motion, in the left hand, Circulation is intact in all extremities. the left hand Sensation intact. 17:31 Skin: Appearance: normal except for affected area, injury, laceration(s), that can be described as irregular, without bleeding. Vital Signs: 15:48 BP 101 / 63; Pulse 74; Resp 17; Temp 97.1; Pulse Ox 99% ; Pain 2/10; ll1 Laceration: 17:31 Wound Repair of 3cm ( 1.2in ) subcutaneous laceration to palm of left hand. Irregularly pm1 shaped.. Distal neuro/vascular/tendon intact. Anesthesia: Local anesthetic administered with 4 mls of Lido/Marcaine. Wound prep: Extensive cleansing with betadine with hibiclenz by me, Wound irrigation with saline by me, Particulate matter removal of dirt by me, Wound explored extensively, Copious irrigation. Skin closed with 5 4-0 Prolene using simple sutures and sterile technique. Dressed with Neosporin, 4x4's, Kerlix, Raymon. Patient tolerated well. MDM: 15:56 Patient medically screened. [facility] 17:30 Data reviewed: vital signs. Data interpreted: Pulse oximetry: on room air is 99 %. pm1 Interpretation: normal. Counseling: I had a detailed discussion with the patient and/or guardian regarding: the historical points, exam findings, and any diagnostic results supporting the discharge/admit diagnosis, radiology results, the need for outpatient follow up, a hand specialist, suture removal in 10-14 days, to return to the emergency department if symptoms worsen or persist or if there are any questions or concerns that arise at home. 01/17 16:01 Order name: Hand Left 3 View XRAY; Complete Time: 17:30 pm1 01/17 16:01 Order name: Wound Care; Complete Time: 16:02 pm1 01/17 16:01 Order name: Prolene, Sutures; Complete Time: 17:49 pm1 16 16:01 Order name: Dressing - Wound; Complete Time: 17:49 pm1 01/17 16:01 Order name: Gloves, Sterile; Complete Time: 17:49 pm1 01/17 16:01 Order name: Setup Suture Tray; Complete Time: 17:49 pm1 Administered Medications: 16:42 Drug: Tetanus-Diphtheria Toxoid Adult 0.5 ml {Horse Riding Coach Or Instructor: [employer]. Exp: em 09/17/2021. Lot #: [id number]. } Route: IM; Site: right deltoid; 17:48 Follow up: Response: No adverse reaction em 17:01 Drug: Bupivacaine (0.5 %) 10 ml {Note: administered by Austin SOAP WORKER.} Volume: 10 ml; em Route: Infiltration; Site: wound; 17:49 Follow up: Response: No adverse reaction; Pain is decreased em 17:01 Drug: Lidocaine (1 %) 5 ml {Note: administered by Austin SOAP WORKER .} Volume: 5 ml; Route: em Infiltration; 17:48 Follow up: Response: No adverse reaction; Pain is decreased em Disposition: 01/18 05:36 Co-signature as Attending Physician, Harjeet Covarrubias MD I agree with the assessment and mariah plan of care. Disposition: 01/18/20 17:31 Discharged to Home. Impression: Laceration without foreign body of left hand. - Condition is Stable. - Discharge Instructions: Laceration Care, Adult. - Prescriptions for Keflex 500 mg Oral Capsule - take 1 capsule by ORAL route every 8 hours for 10 days; 30 capsule. - Medication Reconciliation Form, Thank You Letter, Antibiotic Education, Prescription Opioid Use form. - Follow up: Emergency Department; When: As needed; Reason: Worsening of condition. Follow up: Private Physician; When: 10 - 14 days; Reason: Wound Recheck, Recheck today's complaints, Continuance of care, Staple/Suture removal, Re-evaluation by your physician. - Problem is new. - Symptoms have improved. Signatures: Dispatcher [employer] Harjeet Hinojosa MD MD cha Munoz, Edgar, RN RN em Austin Scott NP SOAP WORKER pm1 Chato Monae RN RN ll1 Corrections: (The following items were deleted from the chart) 01/17 17:53 17:31 01/18/2020 17:31 Discharged to Home. Impression: Laceration without foreign body em of left hand. Condition is Stable. Forms are Medication Reconciliation Form, Thank You Letter, Antibiotic Education, Prescription Opioid Use. Follow up: Emergency Department; When: As needed; Reason: Worsening of condition. Follow up: Private Physician; When: 10 - 14 days; Reason: Wound Recheck, Recheck today's complaints, Continuance of care, Staple/Suture removal, Re-evaluation by your physician. Problem is new. Symptoms have improved. pm1
[2020-01-18 17:58] VITALS: BP 101/63; TEMP 97.1; O2SAT 99
== END 2020-01-18 17:53 | disposition home or self-care (01) ==
LOC: ER 15:42
PROC: 0JQK0ZZ Repair Left Hand Subcutaneous Tissue and Fascia, Open Approach (ICD-10-PCS; principal; 2020-01-18)
DX: S61.412A Laceration without foreign body of left hand, initial encounter (principal); W01.198A Fall on same level from slipping, tripping and stumbling with subsequent striking against other object, initial encounter; Y93.9 Activity, unspecified; Y92.007 Garden or yard of unspecified non-institutional (private) residence as the place of occurrence of the external cause; Z23 Encounter for immunization; E03.9 Hypothyroidism, unspecified; G20 Parkinson's disease
CPT/HCPCS: 90471; 90714; 99284

== ENCOUNTER 2024-04-15 07:41 | Inpatient (IN) | payer OTHER ==
[2024-04-15 08:26] LABS: Absolute Basophils 0.1 K/uL (0-0.5); Absolute Lymphocytes (CBC) 0.8 K/uL (0.7-4.9); Absolute Monocytes 0.6 K/uL (0.1-1.3); Absolute Neutrophil 5.2 K/uL (1.8-8.0); Basophils % 1.1 % (0-1.3); Eosinophils % 0.5 % (0-4.4); Hematocrit 34.9 % (39.6-49.0); Hemoglobin 11.2 g/dL (13.6-17.9); Lymphocytes % 12.1 % (15.3-44.8); MCH 21.5 pg (27.0-35.0); MCHC 32.2 g/dL (32.0-36.0); MCV 66.7 fL (80-100); MPV 7.3 fL (7.6-11.3); Monocytes % 8.6 % (3.3-12.3); Neutrophils % 77.7 % (41.7-73.7); Nucleated Red Blood Cells % 0.1 % (0-0); Platelets 251 thou/uL (152-406); RBC Red Blood Cell Count 5.23 M/uL (4.33-5.43); Red Cell Distribution Width 15.7 % (12.1-15.2)
[2024-04-15 08:40] LABS: AST/SGOT 15 U/L (15-37); Albumin 3.7 g/dL (3.4-5.0); Albumin/Globulin Ratio 1.3 (1.1-1.8); Alkaline Phosphatase 93 U/L (45-117); Anion Gap 4.6 mEq/L (5.0-15.0); BUN Blood Urea Nitrogen 17 mg/dL (7-18); Bicarbonate 31 mEq/L (21-32); Bilirubin Total 1.3 mg/dL (0.2-1.0); Globulin 2.8 g/dL (2.3-3.5); Glomerular Filtration Rate 71 ml/min (=/>90); Glucose Level 84 mg/dL (74-106); Potassium 3.6 mEq/L (3.5-5.1); Protein, Total 6.5 g/dL (6.4-8.2); Sodium Level 139 mEq/L (136-145)
[2024-04-15 08:43] LABS: PTT, Activated Partial Thromb 30.4 SECONDS (24.3-36.9); Protime INR 1.07
[2024-04-15 08:44] LABS: SARS-CoV-2 Antigen CONTROL BLUE LINE VIS/BG OK; SARS-CoV-2 Antigen Rapid Res Negative (Negative)
--- NOTE | 2024-04-15 08:48 | RAD REPORT ---
EXAMINATION: ONE VIEW CHEST XR CLINICAL INDICATION: Male, 79 years old. cough, fever, ams TECHNIQUE: 1 View, AP supine, X-ray of the chest was performed. [id number]. COMPARISON: No prior exam. FINDINGS: Lungs and pleura: Mild ill-defined left basilar opacities. Mild ill-defined left basilar opacities, n ew from prior. No effusion. Heart and mediastinum: Normal heart size. Unremarkable mediastinal contours. Osseous structures: No acute abnormality. Tubes/lines: Left upper chest wall battery pack. Other: None. IMPRESSION: Mild ill-defined left basilar airspace disease could reflect pneumonia.
[2024-04-15 08:57] LABS: ALT/SGPT < 14 U/L (16-61)
[2024-04-15] MEDS ORDERED: NA CHLORIDE 0.9% 250 ML ONE (09:10)
[2024-04-15] MEDS ORDERED: AZITHROMYCIN 500 MG INJ IVPB ONE (09:10)
[2024-04-15] MEDS ORDERED: CEFTRIAXONE 1000 MG/VIAL ONE (09:10)
[2024-04-15] MEDS ORDERED: ACETAMINOPHEN 500 MG TAB ONE (09:10)
[2024-04-15] MEDS ORDERED: NA CHLORIDE 0.9% 1,000 ML ONE (09:10)
--- NOTE | 2024-04-15 09:23 | ER ---
Nurse's Notes [facility] Name: Tk Leyva Age: 79 yrs Sex: Male : 1945 Arrival Date: 04/15/2024 Time: 07:41 Bed 18 Private MD: Diagnosis: Unspecified bacterial pneumonia Presentation: 04/15 07:47 Chief complaint: EMS states: toned out EMS for cough, fever, and altered mental rs5 status x3 days. 07:47 Coronavirus screen: At this time, the client does not indicate any symptoms associated rs5 with coronavirus-19. Ebola Screen: No symptoms or risks identified at this time. Initial Sepsis Screen: Does the patient meet any 2 criteria? No. Patient's initial sepsis screen is negative. Does the patient have a suspected source of infection? No. Patient's initial sepsis screen is negative. Risk Assessment: Do you want to hurt yourself or someone else? Patient reports no desire to harm self or others. Onset of symptoms was July 12, 2024. Care prior to arrival: IV initiated. 18 GA, in the left forearm. 07:47 Method Of Arrival: EMS: [facility] rs5 07:47 Acuity: ANNIE 3 rs5 Triage Assessment: 07:57 General: Appears in no apparent distress. comfortable, Behavior is calm, cooperative. rs5 Pain: Denies pain. Historical: - Allergies: 07:57 NKDA; rs5 - PMHx: 07:57 Hypothyroidism; Parkinsons; rs5 - PSHx: 07:57 None; rs5 - Immunization history:: Adult Immunizations up to date. - Infectious Disease History:: Denies. - Social history:: Smoking status: Patient denies any tobacco usage or history of. Screenin:47 [facility] ED Fall Risk Assessment (Adult) History of falling in the last 3 months, rs5 including since admission No falls in past 3 months (0 pts) Confusion or Disorientation No (0 pts) Intoxicated or Sedated No (0 pts) Impaired Gait Yes (1 pt) Mobility Assist Device Used Yes (1 pt) Altered Elimination No (0 pt) Score/Fall Risk Level 0 - 2 = Low Risk Oriented to surroundings, Maintained a safe environment. Abuse screen: Denies threats or abuse. Nutritional screening: No deficits noted. Tuberculosis screening: No symptoms or risk factors identified. Assessment: 07:47 General: Appears in no apparent distress. comfortable, Behavior is calm, cooperative. rs5 Pain: Denies pain. Neuro: Level of Consciousness is awake, alert, obeys commands, Oriented to person, place, time, situation. Cardiovascular: Denies chest pain, Patient's skin is warm and dry. Respiratory: Reports shortness of breath cough that is Airway is patent Respiratory effort is even, unlabored, Respiratory pattern is regular, symmetrical. GI: Abdomen is round non-distended, Abd is soft and non tender X 4 quads. : No signs and/or symptoms were reported regarding the genitourinary system. EENT: No signs and/or symptoms were reported regarding the EENT system. Derm: Skin is intact, Skin is pink, warm \T\ dry. Musculoskeletal: Range of motion: intact in all extremities. 09:01 Reassessment: Patient and/or family updated on plan of care and expected duration. Pain rs5 level reassessed. Patient is alert, oriented x 3, equal unlabored respirations, skin warm/dry/pink. Patient states feeling better. 10:05 Reassessment: No changes from previously documented assessment. rs5 11:10 Reassessment: No changes from previously documented assessment. rs5 11:37 Reassessment: Patient and/or family updated on plan of care and expected duration. Pain rs5 level reassessed. Patient is alert, oriented x 3, equal unlabored respirations, skin warm/dry/pink. 13:05 Reassessment: Patient and/or family updated on plan of care and expected duration. Pain rs5 level reassessed. Patient is alert, oriented x 3, equal unlabored respirations, skin warm/dry/pink. Patient denies pain at this time. 13:59 Reassessment: No changes from previously documented assessment. rs5 14:20 Reassessment: No changes from previously documented assessment. rs5 Vital Signs: 07:47 BP 125 / 75; Pulse 75; Resp 17; Temp 98; Pulse Ox 95% on R/A; rs5 08:29 Temp 98.3; rs5 11:37 BP 115 / 77; Pulse 79; Resp 17; Pulse Ox 98% on R/A; rs5 14:01 BP 120 / 81; Pulse 75; Resp 17; Pulse Ox 99% on R/A; rs5 14:30 BP 122 / 84; Pulse 71; Resp 16; Pulse Ox 99% on R/A; rs5 ED Course: 07:44 Patient arrived in ED. ec2 07:46 Reji Da Silva MD is Attending Physician. ec2 07:47 Patient has correct armband on for positive identification. Placed in gown. Bed in low rs5 position. Call light in reach. Side rails up X2. 07:47 No provider procedures requiring assistance completed. rs5 07:54 Twin Roca RN is Primary Nurse. rs5 07:57 Triage completed. rs5 08:28 Chest Single View XRAY In Process Unspecified. EDMS 09:23 Kael Méndez MD is Hospitalizing Provider. ec2 12:25 CM met with patient at the bedside in the ED exam room. Patient identified by name and ane . Demographic sheet confirmed. Mr. Leyva states he lives with his in a single story home. He reports that prior to admission, he performs ADLs independently using a walker and an electric scooter. He reports he has a walk in shower with map compiler bars. MPOA is in place. wishes to return home upon discharge. he states his Janessa will transport him home. CM team will continue to follow and coordinate care. 14:40 intact, bleeding controlled, No redness/swelling at site. Pressure dressing applied. rs5 Administered Medications: 09:10 Drug: Rocephin IV 1 grams IV at calculated rate once; Given slow IV push per pharmacy rs5 instructions Route: IV; Rate: calculated rate; Site: left antecubital; 09:30 Follow up: Response: No adverse reaction rs5 09:10 Drug: AZITHromycin IVPB 500 mg IVPB once over 1 hrs; (mix in 250 mL NS) Route: IVPB; rs5 Infused Over: 1 hrs; Site: left antecubital; 10:12 Follow up: Response: No adverse reaction; IV Status: Completed infusion rs5 09:10 Drug: NS 0.9% IV 1000 ml IV at 1 bolus Per protocol; 1000 mL bolus Route: IV; Rate: 1 rs5 bolus; Site: left antecubital; 10:10 Follow up: Response: No adverse reaction; IV Status: Completed infusion rs5 09:10 Drug: Acetaminophen PO 1000 mg PO once Route: PO; rs5 10:10 Follow up: Response: No adverse reaction rs5 10:10 Drug: Piperacillin-Tazobactam IVPB 3.375 grams IVPB once over 60 mins; (mix in NS 100 rs5 mL) Route: IVPB; Infused Over: 60 mins; Site: right antecubital; 11:15 Follow up: Response: No adverse reaction; IV Status: Completed infusion rs5 Medication: 08:32 VIS not applicable for this client. rs5 Outcome: 09:23 Decision to Hospitalize by Provider. ec2 14:40 Discharged to home ambulatory, rs5 14:40 Condition: stable rs5 14:40 Discharge instructions given to patient, family, Instructed on discharge instructions, follow up and referral plans. Demonstrated understanding of instructions, follow-up care, 14:42 Patient left the ED. iw Signatures: Dispatcher [employer] Alisha Dalal RN RN iw Twin Roca RN RN rs5 Reji Da Silva MD MD ec2 Maribell Davenport RN RN ane Corrections: (The following items were deleted from the chart) 11:36 07:47 Cardiovascular: Patient's skin is warm and dry. rs5 rs5 11:36 07:47 Respiratory: Airway is patent Respiratory effort is even, unlabored, Respiratory rs5 pattern is regular, symmetrical, rs5 14:01 14:01 BP 120 / ???; Pulse 75bpm; Resp 17bpm; Pulse Ox 99% RA; rs5 rs5
--- NOTE | 2024-04-15 09:23 | EDPHYS ---
Physician Documentation [facility] Name: Tk Leyva Age: 79 yrs Sex: Male : 1945 Arrival Date: 04/15/2024 Time: 07:41 Bed 18 Private MD: ED Physician Reji Da Silva HPI: 04/15 07:48 This 79 yrs old Male presents to ER via Unassigned with complaints of cough, ec2 ams. 07:48 Patient arrives today for evaluation of cough symptoms. Patient reportedly had a mild ec2 cough. Patient had a transient episode of possible confusion. No vomiting, no diarrhea. Patient is at his baseline right now and has no specific concerns. EMS reports no significant abnormal findings on their evaluation.. Historical: - Allergies: 07:57 NKDA; rs5 - PMHx: 07:57 Hypothyroidism; Parkinsons; rs5 - PSHx: 07:57 None; rs5 - Immunization history:: Adult Immunizations up to date. - Infectious Disease History:: Denies. - Social history:: Smoking status: Patient denies any tobacco usage or history of. ROS: 07:48 Constitutional: as per hpi ec2 Exam: 07:48 Constitutional: GEN: NAD Head: atraumatic Eyes: EOMI Ears: External ears are ec2 normal. CV: regular rate LUNGS: no respiratory distress ABD: non-distended, soft, nontender, guarding, not rigid. SKIN: no evidence of rashes MSK: no evidence of trauma Vital Signs: 07:47 BP 125 / 75; Pulse 75; Resp 17; Temp 98; Pulse Ox 95% on R/A; rs5 08:29 Temp 98.3; rs5 11:37 BP 115 / 77; Pulse 79; Resp 17; Pulse Ox 98% on R/A; rs5 14:01 BP 120 / 81; Pulse 75; Resp 17; Pulse Ox 99% on R/A; rs5 14:30 BP 122 / 84; Pulse 71; Resp 16; Pulse Ox 99% on R/A; rs5 MDM: 07:47 Patient medically screened. ec2 07:48 Data reviewed: vital signs. ED course: Patient arrives today for evaluation of cough ec2 and confusion. Examination remarkable for well-appearing nontoxic in which was otherwise in no acute distress with a reassuring examination. Will obtain lab work, chest x-ray, viral swab. Differential clued viral infection, pneumonia, urinary tract infection.. 08:58 ED course: CBC is reassuring, coag profile is nonactionable. Chest x-ray independently ec2 reviewed and interpreted by me, shows left lower lobe opacity, COVID testing negative. Flu testing negative. Will treat with antibiotic therapy. . 09:01 ED course: Metabolic profile is reassuring. . ec2 09:23 ED course: Given the patient's age as well as transient confusion and pneumonia, will ec2 admit. Discussed case with hospitalist agrees accept patient for admission.. 04/15 07:47 Order name: CBC with Diff ec2 04/15 07:47 Order name: CMP; Complete Time: 09:01 ec2 04/15 07:47 Order name: Protime (+inr); Complete Time: 08:55 ec2 04/15 07:47 Order name: Ptt, Activated; Complete Time: 08:55 ec2 04/15 07:47 Order name: Urinalysis w/ reflexes ec2 04/15 07:47 Order name: SARS RAPID; Complete Time: 08:55 ec2 04/15 07:47 Order name: Influenza Screen (a \T\ B); Complete Time: 08:55 ec2 04/15 08:41 Order name: CBC Smear Scan EDMS 04/15 07:47 Order name: Chest Single View XRAY; Complete Time: 08:55 ec2 04/15 07:47 Order name: Accucheck; Complete Time: 07:58 ec2 04/15 07:47 Order name: Cardiac monitoring; Complete Time: 07:58 ec2 04/15 07:47 Order name: EKG - Nurse/Tech; Complete Time: 09:36 ec2 04/15 07:47 Order name: IV Saline Lock - Large Bore; Complete Time: 09:36 ec2 04/15 07:47 Order name: Labs collected and sent; Complete Time: 09:36 ec2 04/15 07:47 Order name: O2 Per Protocol; Complete Time: 09:36 ec2 04/15 07:47 Order name: O2 Sat Monitoring; Complete Time: 09:36 ec2 04/15 07:47 Order name: Vital Signs; Complete Time: 09:36 ec2 Administered Medications: 09:10 Drug: Rocephin IV 1 grams IV at calculated rate once; Given slow IV push per pharmacy rs5 instructions Route: IV; Rate: calculated rate; Site: left antecubital; 09:30 Follow up: Response: No adverse reaction rs5 09:10 Drug: AZITHromycin IVPB 500 mg IVPB once over 1 hrs; (mix in 250 mL NS) Route: IVPB; rs5 Infused Over: 1 hrs; Site: left antecubital; 10:12 Follow up: Response: No adverse reaction; IV Status: Completed infusion rs5 09:10 Drug: NS 0.9% IV 1000 ml IV at 1 bolus Per protocol; 1000 mL bolus Route: IV; Rate: 1 rs5 bolus; Site: left antecubital; 10:10 Follow up: Response: No adverse reaction; IV Status: Completed infusion rs5 09:10 Drug: Acetaminophen PO 1000 mg PO once Route: PO; rs5 10:10 Follow up: Response: No adverse reaction rs5 10:10 Drug: Piperacillin-Tazobactam IVPB 3.375 grams IVPB once over 60 mins; (mix in NS 100 rs5 mL) Route: IVPB; Infused Over: 60 mins; Site: right antecubital; 11:15 Follow up: Response: No adverse reaction; IV Status: Completed infusion rs5 Disposition Summary: 04/15/24 09:23 Hospitalization Ordered Notes: Hospitalization Status: Inpatient Admission ec2 Provider: Kael Méndez Condition: Stable ec2 Problem: new ec2 Symptoms: are unchanged ec2 Bed/Room Type: Standard ec2 [facility]04[facility] 13:31[facility] Room Assignment: [facility](04/15/24 13:31) [facility] Diagnosis - Unspecified bacterial pneumonia ec2 Forms: - Medication Reconciliation Form ec2 - SBAR form ec2 - Leadership Thank You Letter ec2 Signatures: Dispatcher [employer] Alisha Dalal RN RN Twin Roca RN RN rs5 Reji Da Silva MD MD [facility] Laura Ly [facility] Corrections: (The following items were deleted from the chart) 07:48 07:48 CBC+H.LAB.BRZ ordered. EDMS EDMS 07:48 07:48 COMPREHENSIVE METABOLIC PANEL+C.LAB.BRZ ordered. EDMS EDMS 07:48 07:48 PROTIME (+INR)+COAG.LAB.BRZ ordered. EDMS EDMS 07:48 07:48 PTT, ACTIVATED+COAG.LAB.BRZ ordered. EDMS EDMS 07:48 07:48 Urinalysis+U.LAB.BRZ ordered. EDMS EDMS 07:48 07:48 SARS-COV-2 Antigen Rapid+I.LAB.BRZ ordered. EDMS EDMS 07:48 07:48 Influenza Screen (A \T\ B)+BA.LAB.BRZ ordered. EDMS EDMS 07:48 07:48 Chest Single View+RAD.RAD.BRZ ordered. EDMS EDMS 09:36 07:47 Byrd ordered. 2 rs5 13:14 09:23 Telemetry/[facility] (Inpatient) ec2 iw 13:14 09:23 2 iw 13:31 13:14 [facility] ER HOLD jr12 13:31 13:14 ERHOLD- jr12
[2024-04-15 09:40] LABS: Blood Morphology Comment NOTED (NOT SEEN); Hypochromasia 1+; Platelet Estimate ADEQ; White Blood Cell Scan OK (OK)
[2024-04-15 09:44] LABS: Specific Gravity 1.009 (1.005-1.030); Sqamous Epithelial <5 /HPF (None Seen); Urine Bacteria <20 /HPF (<20); Urine Bilirubin NEGATIVE (Negative); Urine Blood Negative (Negative); Urine Clarity Turbid (Clear); Urine Color Light-Yellow (Yellow); Urine Culture Reflex Order NOT NEEDED; Urine Glucose NEGATIVE (Negative); Urine Ketones NEGATIVE (Negative); Urine Microscopic Reflex YN ORDER UMIC; Urine Mucus Slight /HPF (None Seen); Urine Nitrite NEGATIVE (Negative); Urine Protein NEGATIVE (Negative); Urine RBC <5 /HPF (None Seen); Urine Urobilinogen 1+ (Normal); Urine WBC <5 /HPF (<5)
[2024-04-15] MEDS ORDERED: NA CHLORIDE 0.9% 100 ML ONE (09:48)
[2024-04-15] MEDS ORDERED: PIPERACIL/TAZO 3.375 GM VIAL IV ONE (09:49)
[2024-04-15] MEDS ORDERED: ACETAMINOPHEN 325 MG TABLET PO PRN (10:12)
[2024-04-15 15:29] VITALS: BMI 24.5
[2024-04-15] MEDS: PIPER TAZO 3.375 GM in NA CHLORIDE 0.9% 100 ML IV SCH (17:24)
[2024-04-15] MEDS: ROPINIROLE HCL 1 MG TAB PO SCH (20:07)
[2024-04-15] MEDS: CARBIDOPA/LEVODOPA 25/100 TAB PO SCH (20:07)
--- NOTE | 2024-04-15 22:33 | HP ---
Date of Admission: 04/15/2024 Chief Complaint: Fever, chills, cough, congestion. History Of Present Illness: This is a 79-year-old pleasant male patient, who lives at home with his , came into emergency room with complaints of fever, chills, cough, and chest congestion that sym ptoms started as of yesterday. Denies any shortness of breath, nausea, vomiting, diarrhea. No troub le swallowing food or liquids. After the patient was brought into emergency room via ambulance, he w as admitted to the hospital with pneumonia. I saw him this evening and his was present with him at bedside. Allergies: NO KNOWN ALLERGIES. Medications: Carbidopa/levodopa 25/100 one tablet 3 times a day, vitamin D3 1000 units daily, levoth yroxine 125 mcg daily, Claritin 10 mg daily as needed for allergies, midodrine 2.5 mg 3 times a day t o be taken at 6 a.m., 11 a.m., and 4 p.m., omeprazole 40 mg daily, and ropinirole 2 mg at bedtime. Review of Systems: Respiratory: As mentioned above. Constitutional: As mentioned above. All other systems reviewed and negative. Past Medical History: Significant for anemia which is unspecified, hypothyroidism, history of leg ed mikie, orthostatic hypotension, lumbar radiculopathy, Parkinson's disease, benign prostatic hypertrophy with lower urinary tract symptoms, diverticulosis, allergic rhinitis, gastroesophageal reflux diseas e, and insomnia. Past Surgical History: Deep brain stimulator placed on July 12, 2021, for Parkinson's disease, ch olecystectomy, and vasectomy. Family History: Father had lung cancer and diabetes. Mother, hypothyroidism. Brother with diabetes and hypertension and chronic kidney disease. Social History: Negative for smoking and alcohol use. Physical Examination: Vital Signs: Last temperature 98.3, pulse 75, respiratory rate 17, blood pressure 120/81, oxygen sat uration 99% on room air. Height 5 feet 10 inches and weight 171 pounds. General: Awake, alert, oriented, not in distress. HEENT: Head atraumatic, normocephalic. Conjunctivae nonerythematous. Sclerae white. Mouth, no thr ush or edema noted. Ears/Nose, no mass, lesion, discharge noted. Neck: Supple. No JVD, lymph nodes, bruit, thyromegaly noted. Lungs: Bilateral good equal air entry. Clear to auscultation except presence of rales noted in left lower lung field. Not using accessory muscles of respiration. Heart: Normal heart sounds, no murmur or gallop. Abdomen: Soft, bowel sounds normal. No guarding, rigidity, tenderness, mass, hepatosplenomegaly, dis tention, or bruit noted. Extremities: No leg edema. No calf tenderness. Skin: No rash, ulcer, cellulitis. Lymphatics: No lymph node enlargement in neck, supraclavicular, infraclavicular region. Neuro: No focal neurological deficit. Chest: Unremarkable. External Genitalia: Deferred. Rectal: Deferred. Laboratory Data: White count 6.70, hemoglobin 11.2, platelets 251. COVID-19 test negative. Urinaly sis normal. Sodium 139, potassium 3.6, chloride 107, bicarb 31, BUN 17, creatinine 1.08, glucose 84. Liver function tests unremarkable and chest x-ray shows left lung base density. Impression: 1.Pneumonia. 2.Parkinson's disease. 3.Hypothyroidism. 4.Orthostatic hypotension. 5.Anemia, unspecified. 6.Hyperlipidemia. 7.Benign prostatic hypertrophy with lower urinary tract symptoms. 8.Diverticulosis. 9.Allergic rhinitis. 10.Gastroesophageal reflux disease. Plan: We will go ahead and admit the patient to hospital for further evaluation and management of th is problem. The patient is appropriate for inpatient and [facility] We will start Lovenox 40 mg subcutaneous injection daily for DVT prophylaxis per order. I did di scuss with the patient in presence of his regarding his code status and he informed me that in t he event of cardiopulmonary arrest, he does not want any heroic measures like CPR, defibrillation, or ventilator support, and we will write DNR order in the chart. For his pneumonia, he was started on Zosyn and we will continue that per order. Hemodynamically, he is stable. For Parkinson disease, we will continue his carbidopa/levodopa and no need for any further intervention. For hypothyroidism, he takes levothyroxine and will be continued and no need for further intervention. For orthostatic h ypotension, he takes midodrine 2.5 mg 3 times a day at 6 a.m., 11 a.m., and 4 p.m., and order was carmelo obrien to continue that. For gastroesophageal reflux disease, he takes omeprazole and while in the hos pital, we will continue pantoprazole. Details and plan of treatment discussed with the patient and t he patient's who was at bedside. Total time spent today was 80 minutes that includes review of last office visit record from 03/08/2024, communication with emergency room physician today, review o f emergency room records, performing today's evaluation and management, and communicating details wit h hospitalist who will take over this patient's care as of tomorrow morning. DAVID/MODL Voice ID: [id number]
[2024-04-16] MEDS: ONDANSETRON 4 MG/2 ML VIAL IV PRN (05:42)
[2024-04-16] MEDS: LEVOTHYROXINE SOD 0.125 MG TAB PO SCH (05:42)
[2024-04-16] MEDS: PANTOPRAZOLE 40MG TABLET PO SCH (05:42)
--- NOTE | 2024-04-16 06:41 | P.PN ---
Date of Service: 04/16/24 Subjective: feeling a little better today. still feels a little rundown / weak. +decreased PO intake had an episode of nausea/vomiting this morning after coughing. States he gets similar nausea/vomiting episodes at home, this is not necessarily anything new afebrile ROS: 10 point ROS as noted above, otherwise negative Physical Exam: GEN: Alert, oriented, fatigued appearing HEENT: Normal conjunctiva, sclera anicteric CV: Regular rate and rhythm, no edema Pulm: Nonlabored respirations on room air, clear bilaterally ABD: Soft, nontender, nondistended vitals reviewed Problem List: Pneumonia Chronic anemia Parkinson's disease Hypothyroidism Orthostatic Hypotension GERD hx Allergic rhinitis hx BPH Pneumonia On admission, presents with dyspnea, cough, confusion for ~3 days. +102 fever at home. Does not make after for sepsis CXR (04/15): mild ill-defined left basilar opacities concerning for Pneumonia. given azithromycin, rocephin, in ED continue empiric zosyn (04/15-) afebrile, no leukocytosis on room air Feels very weak Consult PT Chronic anemia. Stable. Daily labs. Parkinson's disease. Resume home carbidopa/levodopa. Hypothyroidism. Resume home synthroid. Orthostatic Hypotension. Resume home midodrine. GERD. Continue protonix while hospitalized. VTE: Lovenox Code: DNR Dispo: Home, ~1-2 days Pending improvement, n/v resolve Time Spent Managing Pts Care (In Minutes): 41
[2024-04-16] MEDS: ONDANSETRON 4 MG/2 ML VIAL IV ONE (06:59)
[2024-04-16] MEDS: MIDODRINE HCL 5 MG TABLET PO SCH (08:00)
[2024-04-16] MEDS: ENOXAPARIN 40 MG/0.4 ML SQ SCH (09:00)
[2024-04-16] MEDS: ENSURE ENLIVE 237 ML CAN PO SCH (17:00)
[2024-04-17 00:58] VITALS: O2SAT 96
[2024-04-17 05:57] LABS: Absolute Eosinophils 0.2 K/uL (0-0.5); Absolute Lymphocytes (CBC) 1.6 K/uL (0.7-4.9); Absolute Monocytes 0.7 K/uL (0.1-1.3); Absolute Neutrophil 2.8 K/uL (1.8-8.0); Basophils % 0.9 % (0-1.3); Hematocrit 31.5 % (39.6-49.0); Hemoglobin 10.4 g/dL (13.6-17.9); Lymphocytes % 30.2 % (15.3-44.8); MCH 21.8 pg (27.0-35.0); MCV 66.1 fL (80-100); MPV 7.6 fL (7.6-11.3); Monocytes % 12.9 % (3.3-12.3); Nucleated Red Blood Cells % 0.1 % (0-0); Platelets 226 thou/uL (152-406); RBC Red Blood Cell Count 4.76 M/uL (4.33-5.43); Red Cell Distribution Width 16.1 % (12.1-15.2)
[2024-04-17 06:09] LABS: Anion Gap 7.8 mEq/L (5.0-15.0); Magnesium 2.2 mg/dL (1.6-2.4); Potassium 3.8 mEq/L (3.5-5.1)
[2024-04-17 08:02] LABS: Anisocytosis 1+; Blood Morphology Comment NOTED (NOT SEEN); Hypochromasia 1+; Microcytosis 2+; Platelet Estimate ADEQ; White Blood Cell Scan OK (OK)
[2024-04-17] MEDS: PANTOPRAZOLE 40MG TABLET PO SCH (08:57)
--- NOTE | 2024-04-17 10:11 | P.DS ---
Admission Date: 04/15/24 Discharge Date: 04/17/24 Disposition: ROUTINE DISCHARGE Discharge Condition: GOOD Brief History of Present Illness: 79-year-old pleasant male patient, who lives at home with his , came into emergency room with complaints of fever, chills, cough, and chest congestion that symptoms started as of yesterday. Denies any shortness of breath, nausea, vomiting, diarrhea. No trouble swallowing food or liquids. After the patient was brought into emergency room via ambulance, he was admitted to the hospital with pneumonia. I saw him this evening and his was present with him at bedside. Hospital Course: Problem List: Pneumonia Chronic anemia Parkinson's disease Hypothyroidism Orthostatic Hypotension GERD hx Allergic rhinitis hx BPH Physician discharge instructions: Patient presented with cough, confusion dyspnea for ~3 days associated with fever at home, secondary to pneumonia seen on chest xray on admission. He received 2 days of empiric zosyn while hospitalized and had improvement of his symptoms. He remained afebrile without leukocytosis throughout his stay. Strength improved with time. Patient was feeling better, breathing more comfortably on room air, appetite improving and was deemed stable for discharge. Patient is to complete 1 week of Augmentin on discharge. Follow up with Dr. Méndez in office in ~1 week for further management. Medications Augmentin twice daily for 1 week okay to take over the counter probiotic while on antiobiotic Follow up: Dr. Méndez in office within 1 week Please call to schedule / confirm appointments Physical Exam: GEN: Alert, oriented, fatigued appearing HEENT: Normal conjunctiva, sclera anicteric CV: Regular rate and rhythm, no edema Pulm: Nonlabored respirations on room air, clear bilaterally ABD: Soft, nontender, nondistended Vital Signs/Physical Exam: Temp Pulse Resp BP Pulse Ox 97.8 F 52 12 146/72 H 95 04/17/24 08:00 04/17/24 08:00 04/17/24 08:00 04/17/24 08:00 04/17/24 08:00 Laboratory Data at Discharge: WBC 5.30 thou/uL (4.3-10.9) 04/17/24 05:40 Hgb 10.4 g/dL (13.6-17.9) L 04/17/24 05:40 Hct 31.5 % (39.6-49.0) L 04/17/24 05:40 Plt Count 226 thou/uL (152-406) 04/17/24 05:40 PT 12.0 SECONDS (9.4-12.5) 04/15/24 08:17 INR 1.07 04/15/24 08:17 APTT 30.4 SECONDS (24.3-36.9) 04/15/24 08:17 Sodium 139 mEq/L (136-145) 04/17/24 05:40 Potassium 3.8 mEq/L (3.5-5.1) 04/17/24 05:40 BUN 12 mg/dL (7-18) 04/17/24 05:40 Creatinine 1.16 mg/dL (0.70-1.30) 04/17/24 05:40 Glucose 92 mg/dL (74-106) 04/17/24 05:40 Magnesium 2.2 mg/dL (1.6-2.4) 04/17/24 05:40 Total Bilirubin 1.3 mg/dL (0.2-1.0) H 04/15/24 08:17 AST 15 U/L (15-37) 04/15/24 08:17 ALT < 14 U/L (16-61) L 04/15/24 08:17 Alkaline Phosphatase 93 U/L (45-117) 04/15/24 08:17 Home Medications: Carbidopa/Levodopa [Carbidopa-Levodopa 25-100 Tab] 1 each PO BID 07/05/19 Levothyroxine [Synthroid*] 125 mcg PO [id number] 07/05/19 Rasagiline Mesylate 1 mg PO [id number] 07/05/19 Ropinirole HCl 4 mg PO BID 07/05/19 Melatonin 3 mg PO BEDTIME 04/15/24 Omeprazole [Prilosec] 40 mg PO 04/15/24 Amox/Clavulanate [Augmentin 875-125 Tab] 1 tab PO BID 7 Days #14 tab 04/17/24 New Medications: Amox/Clavulanate [Augmentin 875-125 Tab] 1 tab PO BID 7 Days #14 tab Physician Discharge Instructions: Physician discharge instructions: Patient presented with cough, confusion dyspnea for ~3 days associated with fever at home, secondary to pneumonia seen on chest xray on admission. He received 2 days of empiric zosyn while hospitalized and had improvement of his symptoms. He remained afebrile without leukocytosis throughout his stay. Strength improved with time. Patient was feeling better, breathing more comfortably on room air, appetite improving and was deemed stable for discharge. Patient is to complete 1 week of Augmentin on discharge. Follow up with Dr. Méndez in office in ~1 week for further management. Medications Augmentin twice daily for 1 week okay to take over the counter probiotic while on antiobiotic Follow up: Dr. Méndez in office within 1 week Please call to schedule / confirm appointments Followup: Gino Méndez MD [Primary Care Provider] - Time spent managing pt's care (in minutes): 45
[2024-04-17 13:04] VITALS: BP 126/69; TEMP 97.6
--- NOTE | 2024-04-19 13:06 | EKG ---
Test Date: 2024-04-15 Test Time: 08:07:33 Swimming Pool Installer: LUIS MEASUREMENT RESULTS: Intervals: Rate: 76 TN: QRSD: 134 QT: 414 QTc: 465 Mentcle: P: TN: QRS: -29 T: 32 INTERPRETIVE STATEMENTS: Wide QRS rhythm Left ventricular hypertrophy with QRS widening Abnormal ECG Compared to ECG 07/17/2017 02:10:52 Uncertain supraventricular rhythm now present Sinus rhythm no longer present Electronically Signed On 04-19-24 12:51:57 CDT by Sergei Benedict
== END 2024-04-17 13:27 | disposition home or self-care (01) | DRG 195 ==
LOC: ER 07:41 → ERHOLD 10:12 → 2ND 14:32
PROVIDERS: ADMIT Internal Medicine; ATTEND Hospitalist
DX: J18.9 Pneumonia, unspecified organism (principal); E03.9 Hypothyroidism, unspecified; D64.9 Anemia, unspecified; I95.1 Orthostatic hypotension; J30.9 Allergic rhinitis, unspecified; G20.A1 Parkinson's disease without dyskinesia, without mention of fluctuations; N40.1 Benign prostatic hyperplasia with lower urinary tract symptoms; K57.90 Diverticulosis of intestine, part unspecified, without perforation or abscess without bleeding; K21.9 Gastro-esophageal reflux disease without esophagitis; Z66 Do not resuscitate; Z98.52 Vasectomy status; Z11.52 Encounter for screening for COVID-19; Z90.49 Acquired absence of other specified parts of digestive tract; Z79.890 Hormone replacement therapy; Z79.899 Other long term (current) drug therapy
CPT/HCPCS: 36415; 71045; 80048; 80053; 81001; 83735; 85025; 85610; 85730; 87804; 87811; 93005; 99284; J0696; J1650; J2405; J2543; J7030; J7050

== ENCOUNTER 2024-08-13 16:58 | Emergency (ER) | payer OTHER ==
--- NOTE | 2024-08-13 17:54 | RAD REPORT ---
EXAMINATION: TWO VIEW CHEST XR CLINICAL INDICATION: Male, 79 years old. [facility] MAIN COUGH Bed: TECHNIQUE: 2 view radiographs of the chest were performed. COMPARISON: 04/15/2024 FINDINGS: The lungs are well inflated and clear. No pneumothorax or sizable effusion. The heart is normal in si ze. Mediastinal contours are unremarkable. Left chest wall neuromodulator battery pack unchanged in position. IMPRESSION: No acute or significant abnormalities.
[2024-08-13 18:16] LABS: SARS-CoV-2 Antigen CONTROL BLUE LINE VIS/BG OK; SARS-CoV-2 Antigen Rapid Res Negative (Negative)
--- NOTE | 2024-08-13 18:18 | ER ---
Nurse's Notes [facility] Name: Tk Leyva Age: 79 yrs Sex: Male : 1945 Arrival Date: 08/13/2024 Time: 16:58 Bed 10 Private MD: Diagnosis: Influenza due to identified novel influenza A virus Presentation: 08/13 17:41 Chief complaint: Patient states: runny nose, congestion, cough, fever since tm6 night (yesterday). Coronavirus screen: Client denies travel out of the [place] in the last 14 days. Ebola Screen: Patient negative for fever greater than or equal to 101.5 degrees Fahrenheit, and additional compatible Ebola Virus Disease symptoms Patient denies exposure to infectious person. Patient denies travel to an Ebola-affected area in the 21 days before illness onset. No symptoms or risks identified at this time. Risk Assessment: Do you want to hurt yourself or someone else? Patient reports no desire to harm self or others. Onset of symptoms was August 12, 2024. 17:41 Method Of Arrival: Wheelchair tm6 17:41 Acuity: ANNIE 4 tm6 17:43 Initial Sepsis Screen: Does the patient meet any 2 criteria? No. Patient's initial tm6 sepsis screen is negative. Does the patient have a suspected source of infection? No. Patient's initial sepsis screen is negative. Triage Assessment: 17:43 General: Appears in no apparent distress. Behavior is calm, cooperative. Pain: Denies tm6 pain. EENT: Reports nasal congestion nasal discharge. Neuro: Level of Consciousness is awake, alert, obeys commands, Oriented to person, place, time, situation. Cardiovascular: Patient's skin is warm and dry. Respiratory: Reports cough that is Airway is patent Respiratory effort is even, unlabored, Respiratory pattern is regular, symmetrical. GI: No signs and/or symptoms were reported involving the gastrointestinal system. Abdomen is flat, non-distended. : No signs and/or symptoms were reported regarding the genitourinary system. Derm: No signs and/or symptoms reported regarding the dermatologic system. Musculoskeletal: No signs and/or symptoms reported regarding the musculoskeletal system. Historical: - Allergies: 17:42 NKDA; tm6 - PMHx: 17:42 Hypothyroidism; Parkinsons; tm6 - PSHx: 17:42 Cholecystectomy; tm6 - Immunization history:: Flu vaccine is not up to date. - Infectious Disease History:: Denies. - Social history:: Smoking status: Patient denies any tobacco usage or history of. Screenin:58 [facility] ED Fall Risk Assessment (Adult) History of falling in the last 3 months, jb4 including since admission No falls in past 3 months (0 pts) Confusion or Disorientation No (0 pts) Intoxicated or Sedated No (0 pts) Impaired Gait No (0 pts) Mobility Assist Device Used No (0 pt) Altered Elimination No (0 pt) Score/Fall Risk Level 0 - 2 = Low Risk Oriented to surroundings, Maintained a safe environment. Abuse screen: Denies threats or abuse. Nutritional screening: No deficits noted. Tuberculosis screening: No symptoms or risk factors identified. Assessment: 17:58 Reassessment: Patient appears in no apparent distress at this time. Patient and/or jb4 family updated on plan of care and expected duration. Pain level reassessed. Patient is alert, oriented x 3, equal unlabored respirations, skin warm/dry/pink. 18:36 Reassessment: Patient appears in no apparent distress at this time. Patient and/or jb4 family updated on plan of care and expected duration. Pain level reassessed. Patient is alert, oriented x 3, equal unlabored respirations, skin warm/dry/pink. Vital Signs: 17:43 BP 99 / 60; Pulse 77; Resp 18; Temp 98.4(O); Pulse Ox 94% on R/A; MAP 72 mmHg; Weight tm6 78.47 kg; Height 5 ft. 10 in. ; Pain 0/10; 17:43 Body Mass Index 24.82 (78.47 kg, 177.8 cm) tm6 17:43 Pain Scale: Adult tm6 ED Course: 17:01 Patient arrived in ED. mr 17:02 Harmony Germain F[facility]-C [facility]. kb 17:02 Deo Lerner DO is Attending Physician. kb 17:37 Chest Pa And Lat (2 Views) XRAY In Process Unspecified. EDMS 17:42 Triage completed. tm6 17:43 Arm band placed on right wrist. tm6 17:56 Flu Sent. jb4 17:56 SARS-COV-2 Antigen Rapid Sent. jb4 17:58 Timothy Jasso, RN is Primary Nurse. jb4 17:58 Patient has correct armband on for positive identification. Bed in low position. Call jb4 light in reach. Side rails up X 1. Provided Education on: plan of care. 18:36 No provider procedures requiring assistance completed. Patient did not have IV access jb4 during this emergency room visit. Administered Medications: 18:36 Drug: Oseltamivir PO 75 mg PO once Route: PO; jb4 18:36 Follow up: Response: Medication administered at discharge. jb4 Medication: 17:58 VIS not applicable for this client. jb4 Outcome: 18:17 Discharge ordered by . alka 18:36 Discharged to home via wheelchair, with family, jb4 18:36 Condition: stable 18:36 Discharge instructions given to patient, family, Instructed on discharge instructions, follow up and referral plans. medication usage, Demonstrated understanding of instructions, follow-up care, medications, Prescriptions given X 1, 18:36 Patient left the ED. jb4 Signatures: Dispatcher [employer] EDMS Harmony Germain, GRAVITY PROSPECTING OPERATOR HELPER-C GRAVITY PROSPECTING OPERATOR HELPER-CkAddis Cavazos, Reg Reg mr Timothy Jasso, RN RN jb4 Alec Vega, RN RN tm6
--- NOTE | 2024-08-13 18:18 | EDPHYS ---
Physician Documentation [facility] Name: Tk Leyva Age: 79 yrs Sex: Male : 1945 Arrival Date: 08/13/2024 Time: 16:58 Bed 10 Private MD: ED Physician Deo Lerner HPI: 08/13 17:56 This 79 yrs old Male presents to ER via Wheelchair with complaints of Cough, Fever. kb 17:56 Pt is a 79 year old male who presents for cough, congestion, fever, malaise that kb started last night. Denies shortness of breath. No aggravating or alleviating factors. Historical: - Allergies: 17:42 NKDA; tm6 - PMHx: 17:42 Hypothyroidism; Parkinsons; tm6 - PSHx: 17:42 Cholecystectomy; tm6 - Immunization history:: Flu vaccine is not up to date. - Infectious Disease History:: Denies. - Social history:: Smoking status: Patient denies any tobacco usage or history of. ROS: 17:54 Constitutional: As per HPI kb Exam: 17:54 Constitutional: This is a well developed, well nourished patient who is awake, alert, kb and in no acute distress. Head/Face: Normocephalic, atraumatic. ENT: Moist Mucous membranes Cardiovascular: Regular rate Respiratory: Respirations even and unlabored. No increased work of breathing. Talking in full sentences Abdomen/GI: Soft, non-tender. No distention Skin: Warm, dry with normal turgor. Normal color. MS/ Extremity: Pulses equal, no cyanosis. Neurovascular intact. Full, normal range of motion. Neuro: Awake and alert, GCS 15, oriented to person, place, time, and situation. Vital Signs: 17:43 BP 99 / 60; Pulse 77; Resp 18; Temp 98.4(O); Pulse Ox 94% on R/A; MAP 72 mmHg; Weight tm6 78.47 kg; Height 5 ft. 10 in. ; Pain 0/10; 17:43 Body Mass Index 24.82 (78.47 kg, 177.8 cm) tm6 17:43 Pain Scale: Adult tm6 MDM: 17:02 Medical Screening Exam initiated kb 17:55 Differential Diagnosis: Bronchitis Influenza Upper Respiratory Infection Pneumonia kb Other covid. Data reviewed: vital signs, nurses notes. Historians other than the Patient: Spouse/Significant Other: . 18:17 I considered the following discharge prescriptions or medication management in the emergency department I discussed and recommended Over The Counter medications, Antibiotics: At this time antibiotics are not recommended. Counseling: I had a detailed discussion with the patient and/or guardian regarding the historical points, exam findings, and any diagnostic results supporting the discharge/admit diagnosis, lab results, radiology results, the need for outpatient follow up, a family practitioner, to return to the emergency department if symptoms worsen or persist or if there are any questions or concerns that arise at home. 08/13 17:02 Order name: Flu; Complete Time: 18:16 kb 08/13 17:02 Order name: SARS-COV-2 Antigen Rapid; Complete Time: 18:17 kb 08/13 17:02 Order name: Chest Pa And Lat (2 Views) XRAY; Complete Time: 17:57 kb Administered Medications: 18:36 Drug: Oseltamivir PO 75 mg PO once Route: PO; jb4 18:36 Follow up: Response: Medication administered at discharge. jb4 Disposition: 20:22 I was immediately available on-site in the Emergency Department for consultation in the ms3 care of the patient. Disposition Summary: 08/13/24 18:17 Discharge Ordered Notes: Location: Home Condition: Stable Diagnosis - Influenza due to identified novel influenza A virus kb Followup: kb - With: Emergency Department - When: As needed - Reason: Worsening of condition Followup: kb - With: Private Physician - When: 2 - 3 days - Reason: Recheck today's complaints, Continuance of care, Re-evaluation by your physician Discharge Instructions: - Discharge Summary Sheet kb - Influenza, Adult, [id number] kb Forms: - Medication Reconciliation Form kb - Antibiotic Education kb - Prescription Opioid Use kb - Patient Portal Instructions kb - Leadership Thank You Letter Prescriptions: - Tamiflu 75 mg Oral capsule - take 1 tablet ORAL route every 12 hours for 5 days; 9 tablet; Refills: 0, kb Product Selection Permitted Signatures: Dispatcher [employer] EDHarmony Murillo FNP-C FNP-Ckb Bryson, James RN RN jb4 Deo Lerner DO DO ms3 Alec Vega RN RN tm6 Corrections: (The following items were deleted from the chart) 17:03 17:03 Chest Pa And Lat (2 Views)+[email or web address] ordered. EDMS EDMS
[2024-08-13] MEDS ORDERED: OSELTAMIVIR 75 MG CAP PO ONE (18:31)
[2024-08-13 19:22] VITALS: BP 99/60; TEMP 98.4; O2SAT 94
== END 2024-08-13 18:36 | disposition home or self-care (01) ==
LOC: ER 16:58
DX: J10.1 Influenza due to other identified influenza virus with other respiratory manifestations (principal); Z11.52 Encounter for screening for COVID-19
CPT/HCPCS: 36415; 71046; 87804; 87811; 99283